=== PATIENT | female | born 1995 | race Hispanic/Latino ===

== ENCOUNTER 2019-09-05 12:27 | Emergency (ER) | payer SELFPAY ==
[2019-09-05] MEDS ORDERED: dexAMETHasone 10 MG/ML VIAL ONE (12:47)
[2019-09-05] MEDS ORDERED: MAGNE/ALUM HYDROXD 30 ML UCUP ONE (12:47)
[2019-09-05] MEDS ORDERED: AMOX/K CLAV 875 MG TAB ONE (12:48)
[2019-09-05] MEDS ORDERED: LIDOCAINE VISCOUS 2% SOLN 15 ML UDC ONE (12:48)
--- NOTE | 2019-09-05 13:00 | EDPHYS ---
Physician Documentation [facility] Name: Ayanna Ochoa Age: 23 yrs Sex: Female : 1995 Arrival Date: 09/05/2019 Time: 12:30 Bed 18 Private MD: ED Physician Salbador Bruno HPI: 09/05 13:06 This 23 yrs old Female presents to ER via Ambulatory with complaints of Sore kb Throat. 13:06 The patient presents with sore throat. The patient describes throat pain as constant. kb Onset: The symptoms/episode began/occurred 2 day(s) ago. Severity of symptoms: At their worst the symptoms were moderate, in the emergency department the symptoms are unchanged. Modifying factors: The symptoms are alleviated by nothing, the symptoms are aggravated by swallowing, Patient's oral intake status: good. Associated signs and symptoms: Pertinent positives: fever, Sore throat. The patient has not experienced similar symptoms in the past. The patient has not recently seen a physician. 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 - Social history:: Smoking status: Patient/guardian denies using tobacco. - Ebola Screening: : No symptoms or risks identified at this time. ROS: 13:04 Neck: Negative for injury, pain, and swelling, Cardiovascular: Negative for chest pain, kb palpitations, and edema, Respiratory: Negative for shortness of breath, cough, wheezing, and pleuritic chest pain, Abdomen/GI: Negative for abdominal pain, nausea, vomiting, diarrhea, and constipation, MS/Extremity: Negative for injury and deformity, Skin: Negative for injury, rash, and discoloration, Neuro: Negative for headache, weakness, numbness, tingling, and seizure. 13:04 Constitutional: Positive for fever. 13:04 ENT: Positive for sore throat. Exam: 13:04 Constitutional: This is a well developed, well nourished patient who is awake, alert, kb and in no acute distress. Head/Face: Normocephalic, atraumatic. Neck: Trachea midline, no thyromegaly or masses palpated, and no cervical lymphadenopathy. Supple, full range of motion without nuchal rigidity, or vertebral point tenderness. No Meningismus. Chest/axilla: Normal chest wall appearance and motion. Nontender with no deformity. No lesions are appreciated. Cardiovascular: Regular rate and rhythm with a normal S1 and S2. No gallops, murmurs, or rubs. Normal PMI, no JVD. No pulse deficits. Respiratory: Lungs have equal breath sounds bilaterally, clear to auscultation and percussion. No rales, rhonchi or wheezes noted. No increased work of breathing, no retractions or nasal flaring. Abdomen/GI: Soft, non-tender, with normal bowel sounds. No distension or tympany. No guarding or rebound. No evidence of tenderness throughout. Skin: Warm, dry with normal turgor. Normal color with no rashes, no lesions, and no evidence of cellulitis. MS/ Extremity: Pulses equal, no cyanosis. Neurovascular intact. Full, normal range of motion. Neuro: Awake and alert, GCS 15, oriented to person, place, time, and situation. Cranial nerves II-XII grossly intact. Motor strength 5/5 in all extremities. Sensory grossly intact. Cerebellar exam normal. Normal gait. 13:04 ENT: Posterior pharynx: Airway: normal, no evidence of obstruction, Tonsils: bilaterally enlarged, with erythema, Uvula: normal, midline, swelling, that is moderate, erythema, that is marked, exudate, is not appreciated. Vital Signs: 12:33 BP 141 / 83; Pulse 84; Resp 16; Temp 98.9; Pulse Ox 100% on R/A; Weight 136.08 kg; la1 MDM: 12:35 Patient medically screened. kb 12:58 Data reviewed: vital signs, nurses notes. Data interpreted: Pulse oximetry: on room air kb is 100 %. Interpretation: normal. Counseling: I had a detailed discussion with the patient and/or guardian regarding: the historical points, exam findings, and any diagnostic results supporting the discharge/admit diagnosis, lab results, the need for outpatient follow up, a family practitioner, to return to the emergency department if symptoms worsen or persist or if there are any questions or concerns that arise at home. 09/05 12:34 Order name: Strep; Complete Time: 12:58 la1 Administered Medications: 12:59 Drug: Augmentin 875 mg Route: PO; em 13:25 Follow up: Response: No adverse reaction em 12:59 Drug: Decadron 10 mg Route: PO; em 13:25 Follow up: Response: No adverse reaction em 12:59 Drug: GI Cocktail without - (Maalox Suspension 30 ml, Lidocaine Liquid 2 % 15 em ml) Route: PO; 13:25 Follow up: Response: No adverse reaction; Pain is decreased em Disposition: 09/05/19 12:59 Discharged to Home. Impression: Streptococcal pharyngitis. - Condition is Stable. - Discharge Instructions: Strep Throat, [id number]. - Prescriptions for Augmentin 875- 125 mg Oral Tablet - take 1 tablet by ORAL route every 12 hours for 10 days; 20 tablet. - Medication Reconciliation Form, Thank You Letter, Antibiotic Education, Prescription Opioid Use form. - Follow up: Emergency Department; When: As needed; Reason: Worsening of condition. Follow up: Private Physician; When: 2 - 3 days; Reason: Recheck today's complaints, Continuance of care, Re-evaluation by your physician. Addendum: 09/07/2019 06:59 Co-signature as Attending Physician, Salbador Bruno MD I agree with the assessment and c aguirre plan of care. Signatures: Dispatcher [employer] EDYissel Pierre, FIBERGLASSER-C FIBERGLASSER-Papab Salbador Bruno MD MD cha Munoz, Edgar, PATTERNMAKER PLASTICS PATTERNMAKER PLASTICS em Michael Golden RN RN la1 Corrections: (The following items were deleted from the chart) 09/05 13:29 12:59 09/05/2019 12:59 Discharged to Home. Impression: Streptococcal pharyngitis. em Condition is Stable. Forms are Medication Reconciliation Form, Thank You Letter, Antibiotic Education, Prescription Opioid Use. Follow up: Emergency Department; When: As needed; Reason: Worsening of condition. Follow up: Private Physician; When: 2 - 3 days; Reason: Recheck today's complaints, Continuance of care, Re-evaluation by your physician. kb
--- NOTE | 2019-09-05 13:00 | ER ---
Nurse's Notes [facility] Name: Ayanna Ochoa Age: 23 yrs Sex: Female : 1995 Arrival Date: 09/05/2019 Time: 12:30 Bed 18 Private MD: Diagnosis: Streptococcal pharyngitis Presentation: 09/05 12:32 Presenting complaint: Patient states: sore throat and VARGAS for the last 2 days. la1 Transition of care: patient was not received from another setting of care. Onset of symptoms was September 05, 2019. Risk Assessment: Do you want to hurt yourself or someone else? Patient reports no desire to harm self or others. Initial Sepsis Screen: Does the patient meet any 2 criteria? No. Patient's initial sepsis screen is negative. Does the patient have a suspected source of infection? No. Patient's initial sepsis screen is negative. Care prior to arrival: None. 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 - Social history:: Smoking status: Patient/guardian denies using tobacco. - Ebola Screening: : No symptoms or risks identified at this time. Screenin:01 Abuse screen: Denies threats or abuse. Nutritional screening: No deficits noted. em Tuberculosis screening: No symptoms or risk factors identified. Fall Risk None identified. Assessment: 13:00 General: Appears in no apparent distress. uncomfortable, Behavior is calm, cooperative, em Reports fever for 1-2 days. Pain: Complains of pain in soft palate, uvula, left aspect of posterior pharynx and right aspect of posterior pharynx Pain currently is 10 out of 10 on a pain scale. Neuro: Level of Consciousness is awake, alert, obeys commands, Oriented to person, place, time, situation, Appropriate for age. Cardiovascular: Capillary refill < 3 seconds Patient's skin is warm and dry. Respiratory: Airway is patent Respiratory effort is even, unlabored, Respiratory pattern is regular, symmetrical, Breath sounds are clear bilaterally. Denies cough. GI: Abdomen is obese. EENT: Nares are clear Oral mucosa is moist. Throat is reddened has enlarged tonsils bilaterally Reports difficulty swallowing since 2 days. Derm: Skin is intact, is healthy with good turgor, Skin is pink, warm \T\ dry. Musculoskeletal: Capillary refill < 3 seconds, Range of motion: intact in all extremities. 13:00 Reassessment: I agree with assessment completed by Danny Wise LVN . aa5 Vital Signs: 12:33 BP 141 / 83; Pulse 84; Resp 16; Temp 98.9; Pulse Ox 100% on R/A; Weight 136.08 kg; la1 ED Course: 12:30 Patient arrived in ED. as 12:33 Triage completed. la1 12:33 Arm band placed on left wrist. la1 12:34 Yissel Valadez FNP-C is [facility]. kb 12:34 Salbador Bruno MD is Attending Physician. kb 12:40 Danny Wise LVN is Primary Nurse. em 13:01 Patient has correct armband on for positive identification. Bed in low position. Call em light in reach. 13:01 No provider procedures requiring assistance completed. Patient did not have IV access em during this emergency room visit. Administered Medications: 12:59 Drug: Augmentin 875 mg Route: PO; em 13:25 Follow up: Response: No adverse reaction em 12:59 Drug: Decadron 10 mg Route: PO; em 13:25 Follow up: Response: No adverse reaction em 12:59 Drug: GI Cocktail without - (Maalox Suspension 30 ml, Lidocaine Liquid 2 % 15 em ml) Route: PO; 13:25 Follow up: Response: No adverse reaction; Pain is decreased em Outcome: 12:59 Discharge ordered by MD. kb 13:26 Discharged to home ambulatory. em 13:26 Condition: good 13:26 Discharge instructions given to patient, Instructed on discharge instructions, follow up and referral plans. medication usage, Demonstrated understanding of instructions, follow-up care, medications, Prescriptions given X 1. 13:29 Patient left the ED. em Signatures: Yissel Valadez FNP-C FNP-Danny Goncalves LVN QUILL FIXER em Ce White Audri RN RN aa5 Michael Golden RN RN la1
[2019-09-05 13:39] VITALS: BP 141/83; TEMP 98.9; O2SAT 100
== END 2019-09-05 13:29 | disposition home or self-care (01) ==
LOC: ER 12:27
DX: J02.0 Streptococcal pharyngitis (principal)
CPT/HCPCS: 87081; 99283; J1100

== ENCOUNTER 2019-09-30 18:08 | Emergency (ER) | payer SELFPAY ==
[2019-09-30] MEDS ORDERED: dexAMETHasone 4 MG TAB ONE (18:53)
[2019-09-30] MEDS ORDERED: IBUPROFEN 400 MG TAB ONE (18:53)
[2019-09-30] MEDS ORDERED: IBUPROFEN 200 MG TAB PO ONE (18:53)
--- NOTE | 2019-09-30 19:09 | RAD REPORT ---
EXAM DESCRIPTION: Skyler Single View09/30/2019 7:02 pm CLINICAL HISTORY: Chest pain COMPARISON: none FINDINGS: The lungs appear clear of acute infiltrate. The heart is normal size IMPRESSION: No acute abnormalities displayed
--- NOTE | 2019-09-30 19:20 | ER ---
Nurse's Notes [facility] Name: Ayanna Ochoa Age: 23 yrs Sex: Female : 1995 Arrival Date: 09/30/2019 Time: 18:11 Bed 7 Private MD: Diagnosis: Cough Presentation: 09/30 18:12 Presenting complaint: Patient states: i have been coughing really bad and running fever tw2 , my body aches, the back of my head hurts, my stomach started hurting since Friday. Transition of care: patient was not received from another setting of care. Onset of symptoms was September 30, 2019. Risk Assessment: Do you want to hurt yourself or someone else? Patient reports no desire to harm self or others. Initial Sepsis Screen: Does the patient meet any 2 criteria? No. Patient's initial sepsis screen is negative. Does the patient have a suspected source of infection? No. Patient's initial sepsis screen is negative. Care prior to arrival: None. 18:12 Method Of Arrival: Ambulatory tw2 18:12 Acuity: ANDREA 3 tw2 Triage Assessment: 18:14 General: Appears in no apparent distress. obese, Behavior is calm, cooperative, tw2 appropriate for age. Pain: Complains of pain in "body aches". 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 - Social history:: Smoking status: . - Ebola Screening: : Patient denies exposure to infectious person. Screenin:23 Abuse screen: Denies threats or abuse. Denies injuries from another. Nutritional jl7 screening: No deficits noted. Tuberculosis screening: No symptoms or risk factors identified. Fall Risk None identified. Assessment: 18:22 General: Appears in no apparent distress. uncomfortable, ill, obese, Behavior is calm, jl7 cooperative. Pain: Complains of pain in body aches Pain currently is 5 out of 10 on a pain scale. Quality of pain is described as aching, Pain began 5 days ago Is continuous. Neuro: Level of Consciousness is awake, alert, obeys commands, Oriented to person, place, time, situation. Cardiovascular: Patient's skin is warm and dry. Respiratory: Reports cough that is non-productive, Airway is patent Respiratory effort is even, unlabored, Respiratory pattern is regular, symmetrical. EENT: Throat is reddened has enlarged tonsils bilaterally. Derm: Skin is pink, warm \\T\\ dry. 19:07 General: Appears in no apparent distress. uncomfortable, Behavior is calm, cooperative, jd3 appropriate for age. Pain: Complains of pain in generalized Quality of pain is described as aching. Neuro: Level of Consciousness is awake, alert, obeys commands, Oriented to person, place, time, situation. Cardiovascular: Capillary refill < 3 seconds Patient's skin is warm and dry. Respiratory: Reports cough that is productive, persistent Airway is patent Respiratory effort is even, unlabored, Respiratory pattern is regular, symmetrical, Denies shortness of breath. GI: No signs and/or symptoms were reported involving the gastrointestinal system. : No signs and/or symptoms were reported regarding the genitourinary system. EENT: Reports pain in throat. Derm: Skin is intact, Skin is dry, Skin is normal, Skin temperature is warm. Musculoskeletal: Circulation, motion, and sensation intact. Range of motion: intact in all extremities. 19:41 Reassessment: Patient appears in no apparent distress at this time. Patient is alert, aa1 oriented x 3, equal unlabored respirations, skin warm/dry/pink. Discussed d/c \\T\\ f/u instructions with pt; denies questions or concerns at this time. Ambulatory to lobby with steady gait. Vital Signs: 18:13 BP 132 / 89; Pulse 94; Resp 17; Temp 98.7(TE); Pulse Ox 99% on R/A; Weight 136.08 kg tw2 (R); Height 5 ft. 5 in. (165.10 cm); Pain 5/10; 18:13 Body Mass Index 49.92 (136.08 kg, 165.10 cm) tw2 ED Course: 18:11 Patient arrived in ED. mr 18:13 Triage completed. tw2 18:14 Arm band placed on. tw2 18:15 Michael Golden FNP-C [facility]. la1 18:15 Demian Dickerson MD is Attending Physician. la1 18:16 Khoa Moreno, RN is Primary Nurse. jl7 18:23 Patient has correct armband on for positive identification. Bed in low position. Call jl7 light in reach. Side rails up X 1. Pulse ox on. NIBP on. 18:23 Flu and/or RSV swab sent to lab. jl7 19:00 Chest Single View XRAY In Process Unspecified. EDMS 19:41 No provider procedures requiring assistance completed. Patient did not have IV access aa1 during this emergency room visit. Administered Medications: 18:54 Drug: Decadron 10 mg Route: PO; jl7 18:54 Drug: Motrin 600 mg Route: PO; jl7 Outcome: 19:19 Discharge ordered by . la1 19:41 Discharged to home ambulatory. aa1 19:41 Condition: good 19:41 Discharge instructions given to patient, Instructed on discharge instructions, follow up and referral plans. medication usage, Demonstrated understanding of instructions, follow-up care, medications. 19:42 Patient left the ED. aa1 Signatures: Dispatcher [employer] EDCO Veronica Vogel, RN RN aa1 Knowles Solange Golden Michael, PAN PUSHER-C PAN PUSHER-Cla1 Kiki Dyson RN RN tw2 Khoa Moreno, RN RN jl7 Mateo Sesay RN RN jd3
--- NOTE | 2019-09-30 19:21 | EDPHYS ---
Physician Documentation [facility] Name: Ayanna Ochoa Age: 23 yrs Sex: Female : 1995 Arrival Date: 09/30/2019 Time: 18:11 Bed 7 Private MD: ED Physician Demian Dickerson HPI: 09/30 19:15 This 23 yrs old Female presents to ER via Ambulatory with complaints of Flu la1 Symptoms. 19:15 The patient or guardian reports cough, flu symptoms. Onset: The symptoms/episode la1 began/occurred 5 day(s) ago. Modifying factors: The symptoms are alleviated by nothing. the symptoms are aggravated by nothing. Associated signs and symptoms: Pertinent positives: chest pain, sore throat, this patient has no pertinent positive symptoms Pertinent negatives: chest pain, diarrhea, ear ache, nausea, rhinorrhea, sore throat, vomiting. Severity of symptoms: At their worst the symptoms were mild in the emergency department the symptoms are unchanged. pt recently had strep throat, completed abx, is having worsening cough and chills at home/. 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 - Social history:: Smoking status: . - Ebola Screening: : Patient denies exposure to infectious person. ROS: 19:17 Constitutional: + chills and subjective fever Eyes: Negative for injury, pain, redness, la1 and discharge, ENT: Negative for injury, pain, and discharge, Neck: Negative for injury, pain, and swelling, Cardiovascular: Negative for chest pain, palpitations, and edema, Respiratory: + for cough Abdomen/GI: Negative for abdominal pain, nausea, vomiting, diarrhea, and constipation, Back: Negative for injury and pain, MS/Extremity: Negative for injury and deformity, Neuro: Negative for headache, weakness, numbness, tingling, and seizure. Exam: 19:18 Constitutional: This is a well developed, well nourished patient who is awake, alert, la1 and in no acute distress. Head/Face: Normocephalic, atraumatic. Eyes: Pupils equal round and reactive to light, extra-ocular motions intact. Periorbital areas with no swelling, redness, or edema. 19:18 Neck: Trachea midline, no thyromegaly or masses palpated, and no cervical lymphadenopathy. Supple, full range of motion without nuchal rigidity, or vertebral point tenderness. No Meningismus. Chest/axilla: Normal chest wall appearance and motion. Nontender with no deformity. No lesions are appreciated. Cardiovascular: Regular rate and rhythm with a normal S1 and S2. No gallops, murmurs, or rubs. Normal PMI, no JVD. No pulse deficits. Respiratory: Lungs have equal breath sounds bilaterally, clear to auscultation and percussion. No rales, rhonchi or wheezes noted. No increased work of breathing, no retractions or nasal flaring. Abdomen/GI: Soft, non-tender, with normal bowel sounds. No distension or tympany. No guarding or rebound. No evidence of tenderness throughout. 19:18 ENT: Posterior pharynx: is normal, Tonsils: bilaterally enlarged, no enlargement, no erythema, no exudate, no ulcerations. Vital Signs: 18:13 BP 132 / 89; Pulse 94; Resp 17; Temp 98.7(TE); Pulse Ox 99% on R/A; Weight 136.08 kg tw2 (R); Height 5 ft. 5 in. (165.10 cm); Pain 5/10; 18:13 Body Mass Index 49.92 (136.08 kg, 165.10 cm) tw2 MDM: 18:15 Patient medically screened. la1 19:18 Data reviewed: vital signs, nurses notes, lab test result(s), radiologic studies, I la1 have discussed the patient's presentation/case with the attending Emergency Department Physician; and as a result, I will discharge patient. Data interpreted: Pulse oximetry: on room air is 99 %. Interpretation: normal. Counseling: I had a detailed discussion with the patient and/or guardian regarding: the historical points, exam findings, and any diagnostic results supporting the discharge/admit diagnosis, lab results, radiology results, the need for outpatient follow up, a family practitioner. Special discussion: I discussed with the patient/guardian that the patient's current presentation does not indicate dosing of antibiotics. They should follow-up with their primary care provider and return if the symptoms persist or progress. 09/30 18:17 Order name: Flu jl7 09/30 18:46 Order name: Chest Single View XRAY; Complete Time: 19:15 la1 Administered Medications: 18:54 Drug: Decadron 10 mg Route: PO; jl7 18:54 Drug: Motrin 600 mg Route: PO; jl7 Disposition: 10/01 06:41 Co-signature as Attending Physician, Demian Dickerson MD I agree with the assessment and kdr plan of care. Disposition: 09/30/19 19:19 Discharged to Home. Impression: Cough. - Condition is Stable. - Discharge Instructions: Acute Bronchitis, Adult, Cough, Adult. - Medication Reconciliation Form, Thank You Letter form. - Work release form (09/30/19 19:43). aa1 - Follow up: Private Physician; When: 2 - 3 days; Reason: Recheck today's complaints, Re-evaluation by your physician. - Problem is new. - Symptoms are unchanged. Signatures: Dispatcher [employer] Veronica Solorio, RN RN aa1 Demian Dickerson MD MD kdr Michael Golden, CARBONATION TESTER-C CARBONATION TESTER-Cla1 Kiki Dyson RN RN tw2 Khoa Moreno RN RN jl7 Corrections: (The following items were deleted from the chart) 09/30 19:42 19:19 09/30/2019 19:19 Discharged to Home. Impression: Cough. Condition is Stable. aa1 Forms are Medication Reconciliation Form, Thank You Letter, Antibiotic Education, Prescription Opioid Use. Follow up: Private Physician; When: 2 - 3 days; Reason: Recheck today's complaints, Re-evaluation by your physician. Problem is new. Symptoms are unchanged. la1
[2019-09-30 19:54] VITALS: BP 132/89; TEMP 98.7; O2SAT 99
== END 2019-09-30 19:42 | disposition home or self-care (01) ==
LOC: ER 18:08
DX: R05 Cough (principal)
CPT/HCPCS: 71045; 87804; 99284; J8540

== ENCOUNTER 2020-03-18 23:26 | Emergency (ER) | payer SELFPAY, OTHER ==
[2020-03-19 00:24] LABS: Urine Blood 2+ (NEG); Urine Glucose NEGATIVE (NEG); Urine Protein NEGATIVE (NEG); Urine Specific Gravity >1.030 (1.005-1.030); Urine pH 5.5 (5.0-7.0)
[2020-03-19] MEDS ORDERED: AMOX/K CLAV 875 MG TAB ONE (01:37)
[2020-03-19 01:42] VITALS: TEMP 97.7; O2SAT 100
[2020-03-19 01:43] VITALS: BP 125/60
--- NOTE | 2020-03-20 18:26 | ER ---
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 denies N/V/D, reports unsure of how high temp was due to not having a thermometer at home. 23:28 Coronavirus screen: Proceed with normal triage. Ebola Screen: Patient negative for sg fever greater than or equal to 101.5 degrees Fahrenheit, and additional compatible Ebola Virus Disease symptoms Patient denies exposure to infectious person. Patient denies travel to an Ebola-affected area in the 21 days before illness onset. No symptoms or risks identified at this time. 23:28 Method Of Arrival: Ambulatory sg 23:28 Acuity: ANDREA 5 sg 23:28 Initial Sepsis Screen: Does the patient meet any 2 criteria? No. Patient's initial sg sepsis screen is negative. Does the patient have a suspected source of infection? No. Patient's initial sepsis screen is negative. Risk Assessment: Do you want to hurt yourself or someone else? Patient reports no desire to harm self or others. Onset of symptoms was March 18, 2020. Care prior to arrival: None. Transition of care: patient was not received from another setting of care. Historical: - Allergies: 23:29 No Known Allergies; sg - PMHx: 23:51 Headaches; sg - PSHx: 23:29 ; sg - Immunization history:: Adult Immunizations up to date. - Social history:: Smoking status: Patient denies any tobacco usage or history of. Assessment: 23:30 General: Appears in no apparent distress. well groomed, well developed, well nourished, sg Behavior is calm, cooperative, appropriate for age. Neuro: Level of Consciousness is awake, alert, obeys commands, Oriented to person, place, time, Speech is normal, Facial symmetry appears normal. Cardiovascular: Patient's skin is warm and dry. Chest pain is denied. Respiratory: Airway is patent Respiratory effort is even, unlabored, Respiratory pattern is regular, symmetrical. GI: No signs and/or symptoms were reported involving the gastrointestinal system. : No signs and/or symptoms were reported regarding the genitourinary system. EENT: Nares are clear bilaterally Oral mucosa is moist. Throat is reddened has enlarged tonsils on right. Derm: No signs and/or symptoms reported regarding the dermatologic system. Musculoskeletal: Circulation, motion, and sensation intact. Range of motion: intact in all extremities. 03/19 01:20 Reassessment: pt request to be contacted with COVID 19 results at [phone]. sg Vital Signs: 03/18 23:28 BP 142 / 70; Pulse 78; Resp 18; Temp 97.7; Pulse Ox 100% ; sg 03/19 01:16 BP 125 / 60; Pulse 77; Resp 18; Temp 97.7; Pulse Ox 100% on R/A; Pain 0/10; sg ED Course: 03/18 23:28 Patient arrived in ED. ds1 23:28 Arm band placed on. sg 23:29 Triage completed. sg 23:30 Patient has correct armband on for positive identification. Pulse ox on. NIBP on. sg 23:56 Salbador Caicedo PA is PHCP. cp 23:56 Kodi Velez MD is Attending Physician. cp 03/19 00:20 Ian Jernigan, RN is Primary Nurse. sg 00:40 Flu and/or RSV swab sent to lab. Strep swab sent to lab. COVID 19 swab walked to lab as sg per policy. 01:20 No provider procedures requiring assistance completed. Patient did not have IV access sg during this emergency room visit. Administered Medications: 01:18 Drug: Augmentin 875 mg Route: PO; sg Outcome: 01:16 Discharge ordered by . cp 01:20 Discharged to home ambulatory, with friend. sg 01:20 Condition: good 01:20 Discharge instructions given to patient, teletype mechanic, Instructed on discharge instructions, follow up and referral plans. medication usage, safety practices, Demonstrated understanding of instructions, follow-up care, medications, Prescriptions given X 1. 01:23 Patient left the ED. sg Addendum: 03/24/2020 16:20 Addendum: Other attempted to contact pt regarding negative COVID-19 swab results. Left d m5 voice mail. Signatures: Neelam Carrera, RN RN dm5 Ian Jernigan RN RN sg Luma Adams ds1 Salbador Caicedo PA PA cp Corrections: (The following items were deleted from the chart) 03/18 23:50 23:28 Chief complaint: [facility] 23:52 23:28 Acuity: ANDREA 4 [facility] 03/19 00:18 03/18 23:28 Chief complaint: Patient states: I felt like I had a fever last night so I sg called my mutual fund manager and told them I was not coming in so she told me that I have to get checked out and get a work note before I can come back into work so that's why Im here. denies N/V/D, reports unsure of how high temp was due to not having a thermometer at [facility] Chief complaint: Patient states: I felt like I had a fever last night so I called my mutual fund manager and told them I was not coming in so she told me that I have to get checked out and get a work note before I can come back into work so that's why Im here. denies N/V/D, reports unsure of how high temp was due to not having a thermometer at [facility]
--- NOTE | 2020-03-20 18:26 | EDPHYS ---
Physician Documentation [facility] Name: Ayanna Ochoa Age: 24 yrs Sex: Female : 1995 Arrival Date: 03/18/2020 Time: 23:28 Bed 25 Private MD: ED Physician Kodi Velez HPI: 03/19 00:26 This 24 yrs old Female presents to ER via Ambulatory with complaints of Fever. cp 00:26 The patient reports fever, not measured (subjective). Onset: The symptoms/episode cp began/occurred yesterday. Associated signs and symptoms: Pertinent negatives: abdominal pain, chest pain, chills, cough, diarrhea, runny nose, sore throat, vomiting. Severity of symptoms: in the emergency department the symptoms have improved mildly. Patient reports taking oral tylenol yesterday afternoon and missing work yesterday after calling and telling them she felt like she had a fever. Patient reports she did not take temperature because she does not have a thermometer. Historical: - Allergies: 03/18 23:29 No Known Allergies; sg - PMHx: 23:51 Headaches; sg - PSHx: 23:29 ; sg - Immunization history:: Adult Immunizations up to date. - Social history:: Smoking status: Patient denies any tobacco usage or history of. ROS: 03/19 00:28 Eyes: Negative for injury, pain, redness, and discharge. cp Constitutional: Positive for subjective fever, Negative for body aches, chills, poor PO intake. ENT: Negative for drainage from ear(s), ear pain, sore throat, difficulty swallowing, difficulty handling secretions. Cardiovascular: Negative for chest pain. Respiratory: Negative for cough, shortness of breath, wheezing. Abdomen/GI: Negative for abdominal pain, nausea, vomiting, and diarrhea. Skin: Negative for rash. Neuro: Negative for altered mental status, dizziness, headache, weakness. All other systems are negative. Exam: 00:29 Head/Face: Normocephalic, atraumatic. cp 00:29 Constitutional: The patient appears in no acute distress, alert, awake, non-diaphoretic, non-toxic, well developed, well nourished, obese. 00:29 Eyes: Periorbital structures: appear normal, Conjunctiva: normal, no exudate, no injection, Lids and lashes: appear normal, bilaterally. 00:29 ENT: External ear(s): are unremarkable, Nose: is normal, Mouth: Lips: moist, Oral mucosa: moist, Posterior pharynx: Airway: no evidence of obstruction, patent, Tonsils: no enlargement, no exudate, erythema, that is mild, exudate, is not appreciated. 00:29 Neck: ROM/movement: is normal, is supple, no meningismus, Lymph nodes: no appreciated lymphadenopathy. 00:29 Chest/axilla: Inspection: normal. 00:29 Cardiovascular: Rate: normal, Rhythm: regular. 00:29 Respiratory: the patient does not display signs of respiratory distress, Respirations: normal, no use of accessory muscles, no retractions, labored breathing, is not present, Breath sounds: are clear throughout, no decreased breath sounds, no stridor, no wheezing. 00:29 Abdomen/GI: Exam negative for discomfort, distension, guarding, Inspection: abdomen appears normal. 00:29 Skin: no rash present. 00:29 Neuro: Orientation: to person, place \T\ time. Mentation: is normal. Vital Signs: 03/18 23:28 BP 142 / 70; Pulse 78; Resp 18; Temp 97.7; Pulse Ox 100% ; sg 03/19 01:16 BP 125 / 60; Pulse 77; Resp 18; Temp 97.7; Pulse Ox 100% on R/A; Pain 0/10; sg MDM: 03/18 23:56 Patient medically screened. 03/19 01:16 Data reviewed: vital signs, nurses notes, lab test result(s), and as a result, I will cp discharge patient. 01:16 Counseling: I had a detailed discussion with the patient and/or guardian regarding: the cp historical points, exam findings, and any diagnostic results supporting the discharge/admit diagnosis, lab results, to return to the emergency department if symptoms worsen or persist or if there are any questions or concerns that arise at home. 03/19 00:17 Order name: Urine Dipstick--Ancillary (enter results); Complete Time: 01:10 sg 03/19 00:17 Order name: Urine --Ancillary (enter results); Complete Time: 01:10 sg 03/19 00:24 Order name: COVID-19 cp 03/19 00:24 Order name: Flu; Complete Time: 01:10 cp 03/19 00:24 Order name: Strep; Complete Time: 01:10 cp 03/19 01:10 Interpretation: Abnormal: GP A STREP SC \T\nbsp; GROUP A STREP SCREEN-- \T\nbsp; \T\nbsp; cp POSITIVE. 03/19 00:25 Order name: CORONAVIRUS EDPA 03/18 23:56 Order name: Urine Dipstick-Ancillary (obtain specimen); Complete Time: 00:16 cp 03/18 23:56 Order name: Urine Test (obtain specimen); Complete Time: 00:16 cp 03/19 00:24 Order name: Document PUI#; Complete Time: 00:26 cp 03/19 00:24 Order name: Droplet/Contact Precautions; Complete Time: 00:26 cp 03/19 00:24 Order name: Labs collected and sent; Complete Time: 00:26 cp 03/19 00:24 Order name: Notify Health Dept [phone]/ ; Complete Time: 00:26 cp 03/19 00:24 Order name: O2 Per Protocol; Complete Time: 00:26 cp Administered Medications: 01:18 Drug: Augmentin 875 mg Route: PO; sg Disposition: 07:11 Co-signature as Attending Physician, Kodi Velez MD. [email or web address] Disposition: 03/19/20 01:16 Discharged to Home. Impression: Streptococcal pharyngitis. - Condition is Stable. - Discharge Instructions: Strep Throat. - Prescriptions for Amoxicillin 875 mg Oral Tablet - take 1 tablet by ORAL route every 12 hours for 10 days; 20 tablet. - Work release form, Medication Reconciliation Form, Thank You Letter, Antibiotic Education, Prescription Opioid Use form. - Follow up: Private Physician; When: 2 - 3 days; Reason: Worsening of condition. - Problem is new. - Symptoms have improved. Signatures: [facility] Ian Jernigan RN RN Salbador Alvarez PA PA cp Holmes, Maurice, MD MD [email or web address] Corrections: (The following items were deleted from the chart) 01:23 01:16 03/19/2020 01:16 Discharged to Home. Impression: Streptococcal pharyngitis. sg Condition is Stable. Forms are Work release form, Medication Reconciliation Form, Thank You Letter, Antibiotic Education, Prescription Opioid Use. Follow up: Private Physician; When: 2 - 3 days; Reason: Worsening of condition. Problem is new. Symptoms have improved. cp
== END 2020-03-19 01:23 | disposition home or self-care (01) ==
LOC: ER 23:26
DX: J02.0 Streptococcal pharyngitis (principal); Z20.828 Contact with and (suspected) exposure to other viral communicable diseases
CPT/HCPCS: 81003; 81025; 87081; 87804; 99284; U0002

== ENCOUNTER 2020-11-28 17:59 | Emergency (ER) | payer SELFPAY ==
--- NOTE | 2020-11-28 21:56 | ER ---
Nurse's Notes [facility] Name: Ayanna Ochoa Age: 24 yrs Sex: Female : 1995 Arrival Date: 11/28/2020 Time: 18:02 Bed 7 Private MD: Diagnosis: Presentation: 11/28 18:05 Chief complaint: Patient states: Vaginal bleeding getting worse over the last 3 weeks. ll1 No fever, but feels hot. + nausea. Coronavirus screen: Client denies travel out of the [place] in the last 14 days. At this time, the client does not indicate any symptoms associated with coronavirus-19. Ebola Screen: Patient denies travel to an Ebola-affected area in the 21 days before illness onset. Initial Sepsis Screen: Does the patient meet any 2 criteria? No. Patient's initial sepsis screen is negative. Does the patient have a suspected source of infection? Yes: Acute abdominal pain. Risk Assessment: Do you want to hurt yourself or someone else? Patient reports no desire to harm self or others. Onset of symptoms was November 05, 2020. 18:05 Method Of Arrival: Ambulatory ll1 18:05 Acuity: ANDREA 3 ll1 Historical: - Allergies: 18:07 No Known Allergies; ll1 - PMHx: 18:07 Headaches; ll1 - PSHx: 18:07 ; ll1 - Immunization history:: Flu vaccine is not up to date. - Social history:: Smoking status: Patient/guardian denies using tobacco, Stopped _ months ago 10. Vital Signs: 18:05 BP 138 / 64; Pulse 68; Resp 17; Temp 97.4; Pulse Ox 100% ; Weight 140.61 kg; Height 5 ll1 ft. 5 in. (165.10 cm); Pain 6/10; 18:05 Body Mass Index 51.59 (140.61 kg, 165.10 cm) ll1 ED Course: 18:02 Patient arrived in ED. as 18:07 Triage completed. ll1 18:08 Arm band placed on. ll1 Administered Medications: No medications were administered Outcome: 21:55 Patient left the ED. 1 Signatures: Ce White Lynsay RN RN [facility]
[2020-11-28 21:59] VITALS: BP 138/64; TEMP 97.4; O2SAT 100
== END 2020-11-28 21:55 | disposition left against medical advice (07) ==
LOC: ER 17:59
DX: Z53.21 Procedure and treatment not carried out due to patient leaving prior to being seen by health care provider (principal)
CPT/HCPCS: 99281

== ENCOUNTER 2022-12-15 08:41 | Emergency (ER) | payer SELFPAY ==
--- OUTSIDE RECORDS SUMMARY | 2022-12-15 08:45 | XMS REPORT | Continuity of Care Document ---
:1995 Author Organization [facility] t Address [address] [place] [address] Care Team Providers Name Role Phone Morrical Giuliano PANCHAL Attending Clinician Payers Payer Name Policy Type Policy Number Effective Date Expiration Date S ource Problems Condition Condition Condition Status Onset Resolution Last Treating Co mments Source Name Details Category Date Date Treatment Clinician Date Well woman Well woman Disease Active 2016-10 U nivers exam exam 2- ity of 00:00: [address] Morbid Morbid Disease Active 2016-10 [facility] obesity obesity 12-10 ity of 00:00: [address] Anemia of Anemia of Disease Active 2016-10 Uni vers mother in mother [place] 11[place]15 [place] condition Bran ch Rubella Rubella Disease Active Overview: Univ ers non-immune non-immune 02-17 Address i ty of status, status, 00:00: in [facility] antepartum antepartum 00 Me dical Branch Allergies, Adverse Reactions, Alerts Allergy Allergy Status Severity Reaction(s) Onset Inactive Treating Comm ents Source Name Type Date Date Clinician NO KNOWN Drug Active Univers ALLERGIE Class ity of S [facility] Social History Social Habit Start Date Stop Date Quantity Comments Source Sex Assigned At Universit y of [facility] Exposure to Not sure [place] of SARS-CoV-2 (event) [facility] Cigarettes smoked 2017-10-09 2017-10-09 Univers ity of current (pack per 00:00:00 00:00:00 ) - Reported Branch Tobacco use and 2017-10-09 2017-10-09 Never used Universit y of exposure 00:00:00 00:00:00 [facility] Alcohol intake 2017-10-09 2017-10-09 Current University of 00:00:00 00:00:00 non-drinker of [facility] alcohol Branch (finding) History of tobacco 2013-09-08 Cigarette Smoker University of use 00:00:00 [facility] Smoking Status Start Date Stop Date Source Former smoker 2017-10-09 00:00:00 2017-10-09 00:00:00 Universi ty of [facility] Medications Ordered Filled Start Stop Current Ordering Indication Dosage Frequency Signature Comments Components Source Medication Medication Date Date Medication? Clinician (SIG) Name Name shey 2016- Yes [id number] 1{tbl} Take 1 Univers ne 0.35 mg 2-21 tablet by ity of tablet 00:00: mouth [place] [address] daily. [facility] [place] Immunizations Ordered Filled Immunization Date Status Comments Sourc e Immunization Name Name HPV9 2017-10-09 Completed University of 00:00:00 [facility] MMR 2017-08-26 Completed University of 00:00:00 [facility] Influenza Virus 2017-08-26 Completed Universit y of Vaccine Quad IM 3+ 00:00:00 [facility] Branch HPV9 2017-08-25 Completed University of 00:00:00 [facility] TDAP 2017-07-08 Completed University of 00:00:00 [facility] MMR 2014-04-14 Completed University of 00:00:00 [facility] Varicella 2014-04-14 Completed University of (varivax)(chicken 00:00:00 [place] [facility] edical pox) Branch Influenza Virus 2013-11-04 Completed Universit y of Vaccine (3+ yrs) 00:00:00 [facility] dical Branch MMR 2013-02-22 Completed University of 00:00:00 [facility] Rubella 2013-02-12 Completed University of 00:00:00 [facility] Varicella 2013-02-12 Completed University of (varivax)(chicken 00:00:00 [facility] edical pox) Branch Rubella 2010-07-26 Completed University of 00:00:00 [facility] Varicella 2010-07-26 Completed University of (varivax)(chicken 00:00:00 [facility] edical pox) Branch MMR 2010-02-23 Completed University of 00:00:00 [facility] Influenza Virus 2009-10-24 Completed Universit y of Vaccine - Whole 00:00:00 [facility] ical Branch Td 2008-02-13 Completed University of 00:00:00 [facility] Vital Signs Vital Name Observation Time Observation Value Comments Source Systolic blood 2020-11-29 08:59:00 120 mm[Hg] Univer sity of pressure [facility] Diastolic blood 2020-11-29 08:59:00 70 mm[Hg] Unive rsity of [facility] Heart rate 2020-11-29 08:59:00 82 /min [facility] Respiratory rate 2020-11-29 08:59:00 19 /min [facility] Oxygen saturation in 2020-11-29 08:59:00 99 /min [facility] Arterial blood by [facility] Pulse oximetry [place] Body temperature 2020-11-29 05:48:00 36.78 Ruthie [facility] Body weight 2020-11-29 05:48:00 145.1 kg [facility] BMI 2020-11-29 05:48:00 54.91 kg/m2 [facility] Procedures Procedure Date / Time Performed Performing Clinician Emily e URINALYSIS 2020-11-29 08:54:00 Giuliano Hall [facility] TEST, SERUM 2020-11-29 06:19:00 Cynthia Hall [facility] BASIC METABOLIC PANEL 2020-11-29 06:19:00 Cynthia Hall [facility] (NA, K, CL, CO2, [facility] GLUCOSE, BUN, CREATININE, CA) CBC WITH DIFF 2020-11-29 06:19:00 [facility] Start End Encounter Admission Attending Care Care Encounter Source Date/Time Date/Time Type Type Clinicians Facility Department ID 2021-08-18 Emergency [facility] [id number] Univers 22:41:10 ity of [facility] 2020-11-28 2020-11-29 Emergency Morrical, TRAUMA [id number] Univers 23:56:00 03:41:00 Giuliano Read [place] [id number] [id number] [id number] [facility] 014 Branch Results Test Description Test Time Test Comments Results Result Comments Source URINALYSIS 2020-11-29 09:18:00 Test Item Value Reference Range Interpretation Comme nts APPEARANCE (test code = Hazy Clear A 8665651513) COLOR (test code = 9505986914) Yellow Yellow PH (test code = 7415692497) 4.8-8.0 SP GRAVITY (test code = 1.003-1.030 8326646281) GLU U QUAL (test code = Normal Normal 4768735730) BLOOD (test code = 3686237297) 3+ Negative A KETONES (test code = 1617120374) Negative Negative PROTEIN (test code = 2887-8) Negative Negative UROBILIN (test code = 4.0 mg/dL Normal A 2032525621) BILIRUBIN (test code = Negative Negative 8701678362) NITRITE (test code = 7134376170) Negative Negative LEUK GONZALO (test code = 25/uL Negative A 3855703210) RBC/HPF (test code = 4774387411) >182 See_Comment H [Automated message] The system which ge nerated this result transmit soco reference range: 0 - 3 HP F. The reference range was not used to interpret th is result as normal/abnormal . WBC/HPF (test code = 5378139395) See_Comment H [Automated message] The system which ge nerated this result transmit soco reference range: 0 - 5 HP F. The reference range was not used to interpret th is result as normal/abnormal . BACTERIA (test code = Negative Negative 6778176338) MUCOUS (test code = 7708689801) Slight Negative LPF A SQ EPITH (test code = See_Comment [Auto mated message] The 3812819290) system which [employer] nerated this result transmit soco reference range: <=2 HPF. The reference range was not used to interpret th is result as normal/abnormal . Lab Interpretation (test code = Abnormal 57587-6) [facility], [id number] 07:04:00 Test Item Value Reference Range Interpretation Comments PREG SERUM (test code Negative = 6941036295) CARROLL (test code = CARROLL) Less than 10 IU/L. ?If low titer or ectopic is suspected, resubmit specimen in 48-72 hours. [facility] Metabolic Panel (NA, K, CL, CO2, GLUCOSE, BUN, CREATININE, CA)2020-11-29 06:52:00 Test Item Value Reference Range Interpretation Comments NA (test code = 140 mmol/L 135-145 3601304266) K (test code = 3.9 mmol/L 3.5-5 1293567376) CL (test code = 104 mmol/L 98-108 8123106381) CO2 TOTAL (test code = 29 mmol/L 23-31 7042563828) AGAP (test code = 2-16 9746022846) BUN (test code = 7 mg/dL 7-23 1738108159) GLUCOSE (test code = 104 mg/dL 70-110 2401846040) CREATININE (test code 0.60 mg/dL 0.5-1.04 = 9951226448) CALCIUM (test code = 9.2 mg/dL 8.6-10.6 6803319507) eGFR Calculation mL/min/1.73m2 (Non-) (test code = 2437915160) eGFR Calculation mL/min/1.73m2 () (test code = 2663815167) CARROLL (test code = CARROLL) Association of Glomerular Filtration Rate (GFR) and Staging of Kidney Disease* + -+ + ---+| GFR (mL/min/1.73 m2) ?| With Kidney Damage ?| ?Without Kidney Damage+ -------+ ------+ ---------+| ?>90 ?| ?Stage one ?| ? Normal ?+ --+ -+ ----+| ?60-89 ?| ?Stage two ?| ? Decreased GFR ? + -+ + ---+| ?30-59 ?| ?Stage three ?| ? Stage three ? + -+ + ---+| ?15-29 ?| ?Stage four ? | ? Stage four ?+ --+ -+ ----+| ?<15 (or dialysis) ? ?| ?Stage five ? | ? Stage five ?+ --+ -+ ----+ *Each stage assumes the associated GFR level has been in effect for at least three months. ?Stages 1 to 5, with or without kidney disease, indicate chronic kidney disease. Notes: Determination of stages one and two (with eGFR >59mL/min/1.73 m2) requires estimation of kidney damage for at least three months as defined by structural or functional abnormalities of the kidney, manifested by either:Pathological abnormalities or Markers of kidney damage (including abnormalities in the composition of the blood or urine or abnormalities in imaging tests). [facility] with [id number] 06:46:00 Test Item Value Reference Range Interpretation Comments WBC (test code = See_Comment [Automated 6690-2) message] The sy stem which generated this result transmitted reference range : 4.30 - 11.10 10*3/?L. The reference range was not used to interpret this result as normal/abnormal . RBC (test code = See_Comment [Automated 789-8) message] The sy stem which generated this result transmitted reference range : 3.93 - 5.25 10*6/?L. The reference range was not used to interpret this result as normal/abnormal . HGB (test code = 13.0 g/dL 11.6-15 718-7) HCT (test code = 39.5 % 35.7-45.2 4544-3) MCV (test code = 95.6 fL 80.6-95.5 H 787-2) MCH (test code = 31.5 pg 25.9-32.8 785-6) MCHC (test code = 32.9 g/dL 31.6-35.1 786-4) RDW-SD (test code = 45.0 fL 39-49.9 34128-2) RDW-CV (test code = 12.7 % 12-15.5 788-0) PLT (test code = See_Comment [Automated 777-3) message] The sy stem which generated this result transmitted reference range : 166 - 358 10*3/ ?L. The reference r edvin was not used to interpret this result as normal/abnormal . MPV (test code = 10.6 fL 9.5-12.9 08778-0) NRBC/100 WBC (test See_Comment [Automat ed code = 9150837281) message] The system which generated this result transmitted reference range : 0.0 - 10.0 /100 WBCs. The refer ence range was not u sed to interpret th is result as normal/abnormal . NRBC x10^3 (test code <0.01 See_Comment [Auto mated = 7426771404) message] The s ystem which generated this result transmitted reference range : 10*3/?L. The reference range was not used to interpret this result as normal/abnormal . GRAN MAT (NEUT) % 59.1 % (test code = 770-8) IMM GRAN % (test code 0.30 % = 4020569070) LYMPH % (test code = 33.0 % 736-9) MONO % (test code = 6.2 % 5905-5) EOS % (test code = 1.1 % 713-8) BASO % (test code = 0.3 % 706-2) GRAN MAT x10^3(ANC) 5.16 10*3/uL 1.88-7.09 (test code = 6586640450) IMM GRAN x10^3 (test 0.03 10*3/uL 0-0.06 code = 8815705299) LYMPH x10^3 (test code 2.89 10*3/uL 1.32-3.29 = 731-0) MONO x10^3 (test code 0.54 10*3/uL 0.33-0.92 = 742-7) EOS x10^3 (test code = 0.10 10*3/uL 0.03-0.39 711-2) BASO x10^3 (test code 0.03 10*3/uL 0.01-0.07 = 704-7) Lab Interpretation Abnormal (test code = 08883-8) [facility]"
[2022-12-15] MEDS ORDERED: IBUPROFEN 400 MG TAB ONE (09:03)
--- NOTE | 2022-12-15 10:16 | RAD REPORT ---
EXAM DESCRIPTION: RAD - Ankle Right 3 View - 12/15/2022 9:11 am CLINICAL HISTORY: Pain COMPARISON: None. FINDINGS: Three views of the right ankle. Metallic ornamental bodies overlapping the area above the ankle limit evaluation. No fracture, disloc ation or periosteal reaction. No joint effusion seen. Small calcaneal spur. Enthesopathy at the Achil les tendon attachment. No joint space narrowing. No soft tissue abnormality. IMPRESSION: No acute osseus abnormality. Chronic findings as above.
--- NOTE | 2022-12-15 10:17 | ER ---
Nurse's Notes [facility] Name: Ayanna Ochoa Age: 27 yrs Sex: Female : 1995 Arrival Date: 12/15/2022 Time: 08:45 Bed 5 Private MD: Diagnosis: Sprain of ankle Presentation: 12/15 08:46 Chief complaint: Patient states: "I was out dancing last night and the ground was aa5 uneven and I hurt my ankle". Pt c/o right ankle pain. 08:46 Acuity: ANDREA 4 aa5 08:46 Coronavirus screen: At this time, the client does not indicate any symptoms associated aa5 with coronavirus-19. 08:46 Method Of Arrival: Ambulatory aa5 08:49 Ebola Screen: No symptoms or risks identified at this time. Initial Sepsis Screen: Does ph the patient meet any 2 criteria? No. Patient's initial sepsis screen is negative. Does the patient have a suspected source of infection? No. Patient's initial sepsis screen is negative. Risk Assessment: Do you want to hurt yourself or someone else? Patient reports no desire to harm self or others. Onset of symptoms was December 15, 2022. Historical: - Allergies: 08:48 No Known Allergies; ph - PMHx: 08:48 Headaches; ph - Immunization history:: Adult Immunizations unknown. - Social history:: Smoking status: unknown. Screenin:48 [facility] ED Fall Risk Assessment (Adult) History of falling in the last 3 months, ph including since admission Yes- single mechanical fall (1 pt) Confusion or Disorientation No (0 pts) Intoxicated or Sedated No (0 pts) Impaired Gait No (0 pts) Mobility Assist Device Used No (0 pt) Altered Elimination No (0 pt) Score/Fall Risk Level 0 - 2 = Low Risk Oriented to surroundings, Maintained a safe environment, Hourly rounding (assess needs \\T\\ fall precautionary measures) done. Abuse screen: Denies threats or abuse. Denies injuries from another. Nutritional screening: No deficits noted. Tuberculosis screening: No symptoms or risk factors identified. Assessment: 08:50 General: Appears in no apparent distress. uncomfortable, Behavior is calm, cooperative, jl7 appropriate for age. Pain: Complains of pain in right ankle Pain currently is 7 out of 10 on a pain scale. Cardiovascular: Patient's skin is warm and dry. Respiratory: Airway is patent Respiratory effort is even, unlabored, Respiratory pattern is regular, symmetrical. Derm: Skin is pink, warm \\T\\ dry. Musculoskeletal: Range of motion: limited in right ankle Swelling present in right ankle. 10:00 Reassessment: Patient appears in no apparent distress at this time. No changes from jl7 previously documented assessment. Patient and/or family updated on plan of care and expected duration. Pain level reassessed. Patient is alert, oriented x 3, equal unlabored respirations, skin warm/dry/pink. Vital Signs: 08:52 BP 113 / 76; Pulse 103; Resp 17; Temp 98.0; Pulse Ox 99% ; rs5 10:02 BP 109 / 63; Pulse 89; Resp 18; Pulse Ox 98% ; ph ED Course: 08:45 Patient arrived in ED. rg4 08:46 Yissel Valadez FNP-C is [facility]. kb 08:46 Alan Ramirez MD is Attending Physician. kb 08:48 Khoa Moreno RN is Primary Nurse. jl7 08:49 Patient has correct armband on for positive identification. Bed in low position. Call ph light in reach. Pulse ox on. NIBP on. Door closed. Noise minimized. 08:49 Arm band placed on Patient placed in an exam room. ph 08:59 Triage completed. aa5 09:12 Ankle Right 3 View XRAY In Process Unspecified. EDMS 10:00 No provider procedures requiring assistance completed. Patient did not have IV access jl7 during this emergency room visit. 10:28 Domo wrap to right ankle. jl7 Administered Medications: 09:03 Drug: Ibuprofen 800 mg Route: PO; jl7 10:27 Follow up: Response: No adverse reaction jl7 Medication: 10:00 VIS not applicable for this client. jl7 Outcome: 10:17 Discharge ordered by . kb 10:28 Discharged to home ambulatory. jl7 10:28 Condition: stable 10:28 Discharge instructions given to patient, Instructed on discharge instructions, follow up and referral plans. medication usage, Demonstrated understanding of instructions, follow-up care, medications, Prescriptions given X 1. 10:28 Patient left the ED. jl7 Signatures: Dispatcher [employer] EDND Yissel Valadez FNP-C FNP-Ckb Calderon, Audri RN RN aa5 Marylu Walters, RN RN ph [place], Sarah rg4 Khoa Moreno RN RN jl7 Darnell Turner rs5
--- NOTE | 2022-12-15 10:17 | EDPHYS ---
Physician Documentation [facility] Name: Ayanna Ochoa Age: 27 yrs Sex: Female : 1995 Arrival Date: 12/15/2022 Time: 08:45 Bed 5 Private MD: ED Physician Alan Ramirez HPI: 12/15 09:36 This 27 yrs old Female presents to ER via Ambulatory with complaints of Ankle kb Injury. 09:36 The patient presents with an injury, pain, swelling, tenderness. The complaints affect kb the right ankle. Onset: The symptoms/episode began/occurred last night. Context: The problem was sustained outdoors, resulted from twist, The patient can fully bear weight on the affected extremity. the patient is able to ambulate. Associated signs and symptoms: Pertinent positives: swelling. Modifying factors: The symptoms are alleviated by nothing, the symptoms are aggravated by weight bearing, movement. Severity of symptoms: At their worst the symptoms were moderate, in the emergency department the symptoms are unchanged. The patient has not experienced similar symptoms in the past. The patient has not recently seen a physician. Historical: - Allergies: 08:48 No Known Allergies; ph - PMHx: 08:48 Headaches; ph - Immunization history:: Adult Immunizations unknown. - Social history:: Smoking status: unknown. ROS: 09:35 Constitutional: Negative for fever, chills, and weight loss. kb 09:35 MS/extremity: Positive for pain, swelling, tenderness, of the right ankle. 09:35 All other systems are negative. Exam: 09:35 Constitutional: This is a well developed, well nourished patient who is awake, alert, kb and in no acute distress. Head/Face: Normocephalic, atraumatic. ENT: Moist Mucous membranes Cardiovascular: Regular rate and rhythm with a normal S1 and S2. No gallops, murmurs, or rubs. No pulse deficits. Respiratory: Respirations even and unlabored. No increased work of breathing. Talking in full sentences Skin: Warm, dry with normal turgor. Normal color. Neuro: Awake and alert, GCS 15, oriented to person, place, time, and situation. Moves all extremities. Normal gait. Psych: Awake, alert, with orientation to person, place and time. Behavior, mood, and affect are within normal limits. 09:35 Musculoskeletal/extremity: Extremities: grossly normal except: noted in the right ankle: pain, swelling, tenderness, ROM: limited active range of motion due to pain, Circulation is intact in all extremities. Sensation intact. Weight bearing: able to fully bear weight. Vital Signs: 08:52 BP 113 / 76; Pulse 103; Resp 17; Temp 98.0; Pulse Ox 99% ; rs5 10:02 BP 109 / 63; Pulse 89; Resp 18; Pulse Ox 98% ; ph MDM: 08:46 Patient medically screened. kb 09:37 Differential diagnosis: fracture, sprain. Data reviewed: vital signs, nurses notes. kb Independent interpretation of the following test(s) in the Emergency Department X-Ray: My interpretation is X-ray right ankle read by me, no fracture.. Counseling: I had a detailed discussion with the patient and/or guardian regarding: the historical points, exam findings, and any diagnostic results supporting the discharge/admit diagnosis, radiology results, the need for outpatient follow up, a orthopedic surgeon, to return to the emergency department if symptoms worsen or persist or if there are any questions or concerns that arise at home. 09:53 ED course: Patient is a 27-year-old female who presents with right ankle pain and kb swelling that resulted from twisting it while dancing last night. On exam patient has swelling and tenderness to right ankle more so on the lateral aspect. X-ray of the right ankle ordered and reviewed by me. No apparent fracture. Patient educated to follow-up with orthopedics for continued pain. Educated on RICE. Given return precautions. Verbal understanding received.. 12/15 08:49 Order name: Ankle Right 3 View XRAY; Complete Time: 10:16 kb 12/15 08:53 Order name: Ice pack; Complete Time: 08:55 kb 12/15 10:18 Order name: Domo Wrap; Complete Time: 10:25 kb Administered Medications: 09:03 Drug: Ibuprofen 800 mg Route: PO; jl7 10:27 Follow up: Response: No adverse reaction jl7 Disposition: 11:53 Co-signature as Attending Physician, Alan Ramirez MD I reviewed the patient's care rn provided by the Advanced Practice Provider and agree with the diagnosis and treatment plan. Disposition Summary: 12/15/22 10:17 Discharge Ordered Location: Home kb Condition: Stable kb Diagnosis - Sprain of ankle kb Followup: kb - With: Emergency Department - When: As needed - Reason: Worsening of condition Followup: kb - With: Private Physician - When: 2 - 3 days - Reason: Recheck today's complaints, Continuance of care, Re-evaluation by your physician Discharge Instructions: - Discharge Summary Sheet kb - Ankle Sprain, [id number] kb Forms: - Medication Reconciliation Form kb - Thank You Letter kb - Antibiotic Education kb - Prescription Opioid Use kb - Work release form jl7 Prescriptions: - Ibuprofen 800 mg Oral Tablet - take 1 tablet by ORAL route every 8 hours As needed take with food; 30 tablet; kb Refills: 0, Product Selection Permitted Signatures: Dispatcher [employer] EDMS Yissel Valadez, AUTOS DISASSEMBLERShirleyC AUTOS DISASSEMBLER-Alan Link MD MD rn Hall, Patricia RN RN Khoa Abdi RN RN jl7
[2022-12-15 11:02] VITALS: TEMP 98
[2022-12-15 11:03] VITALS: BP 109/63; O2SAT 98
== END 2022-12-15 10:28 | disposition home or self-care (01) ==
LOC: ER 08:41
DX: S93.401A Sprain of unspecified ligament of right ankle, initial encounter (principal)
CPT/HCPCS: 99284

== ENCOUNTER 2023-04-16 22:56 | Emergency (ER) | payer SELFPAY ==
--- OUTSIDE RECORDS SUMMARY | 2023-04-16 23:00 | XMS REPORT | Continuity of Care Document ---
:1995 Author Organization [facility] t Address [address] [facility] [address] [facility]. [address] [place] [address] Care Team Providers Name Role Phone Morrical Giuliano PANCHAL Attending Clinician Payers Payer Name Policy Type Policy Number Effective Date Expiration Date S ource Problems Condition Condition Condition Status Onset Resolution Last Treating Co mments Source Name Details Category Date Date Treatment Clinician Date Well woman Well woman Disease Active 2016-10 U nivers exam exam 2- ity of 00:00: [address] Morbid Morbid Disease Active 2016-10 Univers obesity obesity 12-10 ity of 00:00: [address] Anemia of Anemia of Disease Active 2016-10 Uni vers mother in mother in 11-15 [place] condition condition Bran ch Rubella Rubella Disease Active Overview: Univ ers non-immune non-immune 02-17 Address i ty of status, status, 00:00: in [facility] antepartum antepartum 00 Me dical Branch Allergies, Adverse Reactions, Alerts Allergy Allergy Status Severity Reaction(s) Onset Inactive Treating Comm ents Source Name Type Date Date Clinician NO KNOWN Drug Active Univers ALLERGIE Class ity of S [facility] Social History Social Habit Start Date Stop Date Quantity Comments Source Sex Assigned At Universit y of [facility] Exposure to Not sure Carmi of SARS-CoV-2 (event) [facility] Cigarettes smoked 2017-10-09 2017-10-09 Univers ity of current (pack per 00:00:00 00:00:00 ) - Reported Branch Tobacco use and 2017-10-09 2017-10-09 Never used Universit y of exposure 00:00:00 00:00:00 [facility] Alcohol intake 2017-10-09 2017-10-09 Current University of 00:00:00 00:00:00 non-drinker of [facility] alcohol Branch (finding) History of tobacco 2013-09-08 Cigarette Smoker University of use 00:00:00 [facility] Smoking Status Start Date Stop Date Source Former smoker 2017-10-09 00:00:00 2017-10-09 00:00:00 Universi ty of [facility] Medications Ordered Filled Start Stop Current Ordering Indication Dosage Frequency Signature Comments Components Source Medication Medication Date Date Medication? Clinician (SIG) Name Name shey 2016- Yes [id number] 1{tbl} Take 1 Univers ne 0.35 mg 2-21 tablet by ity of tablet 00:00: mouth [place] [id number] daily. [facility] [place] Immunizations Ordered Filled Immunization Date Status Comments Sourc e Immunization Name Name HPV9 2017-10-09 Completed University of 00:00:00 [facility] MMR 2017-08-26 Completed University of 00:00:00 [facility] Influenza Virus 2017-08-26 Completed Universit y of Vaccine Quad IM 3+ 00:00:00 [facility] Branch HPV9 2017-08-25 Completed University of 00:00:00 [facility] TDAP 2017-07-08 Completed University of 00:00:00 [facility] MMR 2014-04-14 Completed University of 00:00:00 [facility] Varicella 2014-04-14 Completed University of (varivax)(chicken 00:00:00 [place] [facility] pox) Branch Influenza Virus 2013-11-04 Completed Universit y of Vaccine (3+ yrs) 00:00:00 [facility] dical Branch MMR 2013-02-22 Completed University of 00:00:00 [facility] Rubella 2013-02-12 Completed University of 00:00:00 [facility] Varicella 2013-02-12 Completed University of (varivax)(chicken 00:00:00 [facility] edical pox) Branch Rubella 2010-07-26 Completed University of 00:00:00 [facility] Varicella 2010-07-26 Completed University of (varivax)(chicken 00:00:00 [facility] edical pox) Branch MMR 2010-02-23 Completed University of 00:00:00 [facility] Influenza Virus 2009-10-24 Completed Universit y of Vaccine - Whole 00:00:00 [facility] ical Branch Td 2008-02-13 Completed University of 00:00:00 [facility] Vital Signs Vital Name Observation Time Observation Value Comments Source Systolic blood 2020-11-29 08:59:00 120 mm[Hg] Univer sity of pressure [facility] Diastolic blood 2020-11-29 08:59:00 70 mm[Hg] Unive rsity of [facility] Heart rate 2020-11-29 08:59:00 82 /min [facility] Respiratory rate 2020-11-29 08:59:00 19 /min [facility] Oxygen saturation in 2020-11-29 08:59:00 99 /min [facility] Arterial blood by [facility] Pulse oximetry [place] Body temperature 2020-11-29 05:48:00 36.78 Ruthie [facility] Body weight 2020-11-29 05:48:00 145.1 kg [facility] BMI 2020-11-29 05:48:00 54.91 kg/m2 [facility] Procedures Procedure Date / Time Performed Performing Clinician Emily e URINALYSIS 2020-11-29 08:54:00 Giuliano Hall [facility] TEST, SERUM 2020-11-29 06:19:00 Cynthia Hall [facility] BASIC METABOLIC PANEL 2020-11-29 06:19:00 Cynthia Hall [facility] (NA, K, CL, CO2, [facility] GLUCOSE, BUN, CREATININE, CA) CBC WITH DIFF 2020-11-29 06:19[facility] End Encounter Admission Attending Care Care Encounter Source Date/Time Date/Time Type Type Clinicians Facility Department ID 2021-08-18 Emergency [facility] [id number] Univers 22:41:10 ity of [facility] 2020-11-28 2020-11-29 Emergency Morrical, TRAUMA [id number] Univers 23:56:00 03:41:00 Giuliano Read PLUSH [id number] [id number] [facility] 014 Branch Results Test Description Test Time Test Comments Results Result Comments Source URINALYSIS 2020-11-29 09:18:00 Test Item Value Reference Range Interpretation Comme nts APPEARANCE (test code = Hazy Clear A 5919368440) COLOR (test code = 6767743614) Yellow Yellow PH (test code = 6634225410) 4.8-8.0 SP GRAVITY (test code = 1.003-1.030 1424140288) GLU U QUAL (test code = Normal Normal 6369436042) BLOOD (test code = 2596301552) 3+ Negative A KETONES (test code = 3736630406) Negative Negative PROTEIN (test code = 2887-8) Negative Negative UROBILIN (test code = 4.0 mg/dL Normal A 9408489058) BILIRUBIN (test code = Negative Negative 2793053548) NITRITE (test code = 2575624666) Negative Negative LEUK GONZALO (test code = 25/uL Negative A 9006517428) RBC/HPF (test code = 5325572494) >182 See_Comment H [Automated message] The system which ge nerated this result transmit soco reference range: 0 - 3 HP F. The reference range was not used to interpret th is result as normal/abnormal . WBC/HPF (test code = 9763692286) See_Comment H [Automated message] The system which ge nerated this result transmit soco reference range: 0 - 5 HP F. The reference range was not used to interpret th is result as normal/abnormal . BACTERIA (test code = Negative Negative 9004903508) MUCOUS (test code = 1107553565) Slight Negative LPF A SQ EPITH (test code = See_Comment [Auto mated message] The 0939444744) system which [employer] nerated this result transmit soco reference range: <=2 HPF. The reference range was not used to interpret th is result as normal/abnormal . Lab Interpretation (test code = Abnormal 37194-7) [facility] [id number] 07:04:00 Test Item Value Reference Range Interpretation Comments PREG SERUM (test code Negative = 5291276878) CARROLL (test code = CARROLL) Less than 10 IU/L. ?If low titer or ectopic is suspected, resubmit specimen in 48-72 hours. [facility] Metabolic Panel (NA, K, CL, CO2, GLUCOSE, BUN, CREATININE, CA)2020-11-29 06:52:00 Test Item Value Reference Range Interpretation Comments NA (test code = 140 mmol/L 135-145 3275962853) K (test code = 3.9 mmol/L 3.5-5 6368362774) CL (test code = 104 mmol/L 98-108 4711677221) CO2 TOTAL (test code = 29 mmol/L 23-31 6535226621) AGAP (test code = 2-16 2870389155) BUN (test code = 7 mg/dL 7-23 9040307336) GLUCOSE (test code = 104 mg/dL 70-110 2707432609) CREATININE (test code 0.60 mg/dL 0.5-1.04 = 9733684700) CALCIUM (test code = 9.2 mg/dL 8.6-10.6 5828528268) eGFR Calculation mL/min/1.73m2 (Non-) (test code = 1716567022) eGFR Calculation mL/min/1.73m2 () (test code = 6204667522) CARROLL (test code = CARROLL) Association of [...] or urine or abnormalities in imaging tests). [facility] with [id number] 06:46:00 Test Item Value Reference Range Interpretation [...] RDW-SD (test code = 45.0 fL 39-49.9 45882-2) RDW-CV (test code = 12.7 % 12-15.5 788-0) PLT (test code = See_Comment [Automated 777-3) message] The sy stem which generated this result transmitted reference range : 166 - 358 10*3/ ?L. The reference r edvin was not used to interpret this result as normal/abnormal . MPV (test code = 10.6 fL 9.5-12.9 45733-3) NRBC/100 WBC (test See_Comment [Automat ed code = 4705284747) message] The system which generated this result transmitted reference range : 0.0 - 10.0 /100 WBCs. The refer ence range was not u sed to interpret th is result as normal/abnormal . NRBC x10^3 (test code <0.01 See_Comment [Auto mated = 4793400259) message] The s ystem which generated this result transmitted reference range : 10*3/?L. The reference range was not used to interpret this result as normal/abnormal . GRAN MAT (NEUT) % 59.1 % (test code = 770-8) IMM GRAN % (test code 0.30 % = 8136255139) LYMPH % (test code = 33.0 % 736-9) MONO % (test code = 6.2 % 5905-5) EOS % (test code = 1.1 % 713-8) BASO % (test code = 0.3 % 706-2) GRAN MAT x10^3(ANC) 5.16 10*3/uL 1.88-7.09 (test code = 3076091188) IMM GRAN x10^3 (test 0.03 10*3/uL 0-0.06 code = 8955001348) LYMPH x10^3 (test code 2.89 10*3/uL 1.32-3.29 = 731-0) MONO x10^3 (test code 0.54 10*3/uL 0.33-0.92 = 742-7) EOS x10^3 (test code = 0.10 10*3/uL 0.03-0.39 711-2) BASO x10^3 (test code 0.03 10*3/uL 0.01-0.07 = 704-7) Lab Interpretation Abnormal (test code = 77281-8) [facility]"
--- NOTE | 2023-04-17 01:02 | EDPHYS ---
Physician Documentation [facility] Name: Ayanna Ochoa Age: 27 yrs Sex: Female : 1995 Arrival Date: 04/16/2023 Time: 22:56 Bed 15 Private MD: ED Physician Jose Yeh HPI: 04/16 23:35 This 27 yrs old Female presents to ER via Ambulatory with complaints of Foot cp Pain, Knee Pain, Wrist Pain. 23:35 The patient presents with pain, that is acute. The complaints affect the left foot, cp left wrist. 23:35 Context: resulted from an unknown cause, the patient can fully bear weight, the patient cp is able to ambulate, with moderate difficulty. Onset: The symptoms/episode began/occurred 2 week(s) ago. 23:35 Associated signs and symptoms: Pertinent positives: radiating pain up lower leg to cp knee, Pertinent negatives calf tenderness, fever, swelling, warmth. Treatment prior to arrival includes: no previous treatment. Severity of symptoms: in the emergency department the symptoms are unchanged, despite home interventions. Historical: - Allergies: 23:10 No Known Allergies; ha1 - Immunization history:: Adult Immunizations unknown. - Social history:: Smoking status: unknown. ROS: 23:40 Constitutional: Negative for body aches, chills, fever, poor PO intake. cp 23:40 Eyes: Negative for injury, pain, redness, and discharge. cp 23:40 Neck: Negative for pain with movement, pain at rest, stiffness. 23:40 Cardiovascular: Negative for chest pain. 23:40 Respiratory: Negative for cough, shortness of breath, wheezing. 23:40 Abdomen/GI: Negative for abdominal pain, nausea, vomiting, and diarrhea. 23:40 Back: Negative for pain at rest, pain with movement. 23:40 MS/extremity: Positive for pain, swelling, tenderness, of the left foot and left wrist, Negative for decreased range of motion, deformity, paresthesias. 23:40 Skin: Negative for cellulitis, rash. 23:40 Neuro: Negative for altered mental status, dizziness, headache, weakness. 23:40 All other systems are negative. Exam: 23:45 Constitutional: The patient appears in no acute distress, alert, awake, non-toxic, well cp developed, well nourished, obese. 23:45 Head/Face: Normocephalic, atraumatic. cp 23:45 Eyes: Periorbital structures: appear normal, Conjunctiva: normal, no exudate, no injection, Sclera: no appreciated abnormality, Lids and lashes: appear normal, bilaterally. 23:45 ENT: External ear(s): are unremarkable, Nose: is normal, Mouth: Lips: moist, Oral mucosa: moist, Posterior pharynx: is normal, airway is patent. 23:45 Neck: ROM/movement: is normal, is supple, without pain, no range of motions limitations. 23:45 Chest/axilla: Inspection: normal. 23:45 Cardiovascular: Rate: normal. 23:45 Respiratory: the patient does not display signs of respiratory distress, Respirations: normal, no use of accessory muscles, no retractions, labored breathing, is not present. 23:45 Abdomen/GI: Exam negative for discomfort, distension, guarding, Inspection: abdomen appears normal. 23:45 Back: pain, is absent, ROM is normal. 23:45 Musculoskeletal/extremity: Extremities: grossly normal except: noted in the left wrist: tenderness, There is no evidence of decreased ROM, deformity, noted in the dorsum of left foot: pain, swelling, tenderness, tenderness noted base of left fifth metatarsal, Pulses: noted to be 2+ in the left radial artery and left dorsalis pedis artery. 23:45 Skin: cellulitis, is not appreciated, no rash present. Vital Signs: 23:06 BP 131 / 68; Pulse 81; Resp 20; Temp 97.4; Pulse Ox 100% ; Weight 151.05 kg; Height 5 kl ft. 5 in. ; Pain 8/10; 04/17 00:10 BP 117 / 89; Pulse 78; Resp 18 S; Pulse Ox 100% on R/A; ha1 01:13 BP 122 / 71; Pulse 75; Resp 18 S; Pulse Ox 100% on R/A; ha1 04/16 23:06 Body Mass Index 55.41 (151.05 kg, 165.1 cm) 04/16 23:06 Pain Scale: Adult kl MDM: 04/16 23:25 Patient medically screened. 04/17 01:00 Data reviewed: vital signs, nurses notes, radiologic studies, plain films. 01:00 Independent interpretation of the following test(s) in the Emergency Department X-Ray: cp My interpretation is images of left wrist negative for fracture and images of left foot negative for fracture. Counseling: I had a detailed discussion with the patient and/or guardian regarding: the historical points, exam findings, and any diagnostic results supporting the discharge/admit diagnosis, radiology results, the need for outpatient follow up, a family practitioner, to return to the emergency department if symptoms worsen or persist or if there are any questions or concerns that arise at home. 04/16 23:32 Order name: XRAY Foot LEFT 3 View cp 04/16 23:32 Order name: XRAY Wrist LEFT 3 view cp 04/17 00:40 Order name: Splint - Wrist; Complete Time: 01:10 cp 04/17 00:40 Order name: Domo Wrap; Complete Time: 01:09 cp Administered Medications: No medications were administered Disposition: 05:26 Co-signature as Attending Physician, Jose Yeh MD I agree with the assessment sp4 and plan of care. I reviewed the patient's care provided by the Advanced Practice Provider and agree with the diagnosis and treatment plan. Disposition Summary: 04/17/23 01:02 Discharge Ordered Location: Home cp Problem: new cp Symptoms: have improved cp Condition: Stable cp Diagnosis - Pain in left wrist cp - Pain in left foot cp Followup: cp - With: Private Physician - When: 1 week - Reason: Recheck today's complaints Discharge Instructions: - Discharge Summary Sheet cp - Wrist Pain, Adult cp - Foot Pain cp Forms: - Medication Reconciliation Form cp - Thank You Letter cp - Antibiotic Education cp - Prescription Opioid Use cp - [email or web address] cp - Work release form ha1 Prescriptions: - Ibuprofen 800 mg Oral Tablet - take 1 tablet by ORAL route every 8 hours As needed take with food; 30 tablet; cp Refills: 0, Product Selection Permitted Signatures: Dispatcher [employer] EDMS Salbador Caicedo PA PA cp Kathy Hainse RN RN ha1 Potepalov, Sergey, MD MD sp4 Corrections: (The following items were deleted from the chart) 01:10 00:40 Crutches ordered. cp ha1 21:35 04/16 23:35 The complaints affect the left foot, cp cp
--- NOTE | 2023-04-17 01:02 | ER ---
Nurse's Notes [facility] Name: Ayanna Ochoa Age: 27 yrs Sex: Female : 1995 Arrival Date: 04/16/2023 Time: 22:56 Bed 15 Private MD: Diagnosis: Pain in left wrist;Pain in left foot Presentation: 04/16 23:06 Chief complaint: Patient states: c/o pain to top of left foot radiating to left knee x kl 2 weeks. Also c/o left wrist pain. Coronavirus screen: Vaccine status: Patient reports being unvaccinated. Ebola Screen: Patient negative for fever greater than or equal to 101.5 degrees Fahrenheit, and additional compatible Ebola Virus Disease symptoms. Initial Sepsis Screen: Does the patient meet any 2 criteria? No. Patient's initial sepsis screen is negative. Risk Assessment: Do you want to hurt yourself or someone else? Patient reports no desire to harm self or others. Onset of symptoms was April 02, 2023. 23:06 Method Of Arrival: Ambulatory kl 23:06 Acuity: ANDREA 4 kl 23:20 Initial Sepsis Screen: Does the patient have a suspected source of infection? No. ha1 Patient's initial sepsis screen is negative. Triage Assessment: 23:10 General: Appears comfortable, Behavior is calm, cooperative. Pain: Complains of pain in ha1 left lateral ankle Pain does not radiate. Neuro: Level of Consciousness is awake, alert, obeys commands, Oriented to person, place, time, situation. Cardiovascular: Patient's skin is warm and dry. Respiratory: Airway is patent Respiratory effort is even, unlabored, Respiratory pattern is regular, symmetrical. GI: No signs and/or symptoms were reported involving the gastrointestinal system. Musculoskeletal: Circulation, motion, and sensation intact. Reports pain in left lateral ankle. Historical: - Allergies: 23:10 No Known Allergies; ha1 - Immunization history:: Adult Immunizations unknown. - Social history:: Smoking status: unknown. Screenin:10 [facility] ED Fall Risk Assessment (Adult) History of falling in the last 3 months, ha1 including since admission No falls in past 3 months (0 pts) Score/Fall Risk Level 3 or more points = High Risk Oriented to surroundings, Maintained a safe environment, Educated pt \T\ family on fall prevention, incl call for assistance when getting out of bed. Abuse screen: Denies threats or abuse. Denies injuries from another. Nutritional screening: No deficits noted. Tuberculosis screening: No symptoms or risk factors identified. Assessment: 23:10 Reassessment: see triage assessment. 1 04/17 00:15 Reassessment: Patient and/or family updated on plan of care and expected duration. Pain ha1 level reassessed. Patient is alert, oriented x 3, equal unlabored respirations, skin warm/dry/pink. 01:13 Reassessment: Patient and/or family updated on plan of care and expected duration. Pain ha1 level reassessed. Patient is alert, oriented x 3, equal unlabored respirations, skin warm/dry/pink. Patient states feeling better. Patient states symptoms have improved. Vital Signs: 04/16 23:06 BP 131 / 68; Pulse 81; Resp 20; Temp 97.4; Pulse Ox 100% ; Weight 151.05 kg; Height 5 kl ft. 5 in. ; Pain 8/10; 04/17 00:10 BP 117 / 89; Pulse 78; Resp 18 S; Pulse Ox 100% on R/A; ha1 01:13 BP 122 / 71; Pulse 75; Resp 18 S; Pulse Ox 100% on R/A; ha1 04/16 23:06 Body Mass Index 55.41 (151.05 kg, 165.1 cm) 04/16 23:06 Pain Scale: Adult kl ED Course: 04/16 22:59 Patient arrived in ED. ja2 23:10 Triage completed. 23:10 Arm band placed on right wrist. ha1 23:10 Patient has correct armband on for positive identification. Bed in low position. Call ha1 light in reach. Side rails up X 1. 23:22 Salbador Caicedo PA is PHCP. cp 23:22 Jose Yeh MD is Attending Physician. cp 23:22 Kathy Haines RN is Primary Nurse. ha1 04/17 00:10 XRAY Foot LEFT 3 View In Process Unspecified. EDMS 00:10 XRAY Wrist LEFT 3 view In Process Unspecified. EDMS 01:13 No provider procedures requiring assistance completed. Patient did not have IV access ha1 during this emergency room visit. Administered Medications: No medications were administered Medication: 01:15 VIS not applicable for this client. ha1 Outcome: 01:02 Discharge ordered by . mitra 01:15 Patient left the ED. ha1 01:15 Discharged to home ambulatory, with family. ha1 01:15 Condition: stable ha1 01:15 Discharge instructions given to patient, Instructed on discharge instructions, follow up and referral plans. medication usage, Demonstrated understanding of instructions, follow-up care, medications, Prescriptions given X 1. Signatures: Dispatcher [employer] EDIsabel Duvall RN RN Salbador Mendieta PA PA cp Alexander, Jessica ja2 Ayala, Heidy, RN RN ha1
[2023-04-17 01:19] VITALS: TEMP 97.4; O2SAT 100
[2023-04-17 01:21] VITALS: BP 122/71
--- NOTE | 2023-04-17 17:31 | RAD REPORT ---
EXAM DESCRIPTION: XR Left Wrist Complete, 3 or More Views CLINICAL HISTORY: The patient is 27 years old and is Female; PAIN TECHNIQUE: Frontal, lateral and oblique views of the left wrist. COMPARISON: No relevant prior studies available. FINDINGS: BONES/JOINTS: Unremarkable. No acute fracture. No dislocation. SOFT TISSUES: Mild soft tissue swelling of the dorsum of the wrist and hand is present. Findings may be secondary to patient body habitus. No radiopaque foreign body. IMPRESSION: Mild soft tissue swelling of the dorsum of the wrist and hand is present. Findings may b e secondary to patient body habitus. No underlying acute bony abnormality. Electronically signed by: Lyn Russell MD 04/17/2023 12:39 AM CDT Due to temporary technical issues with the PACS/Fluency reporting system, reports are being signed by the in house radiologists without review as a courtesy to insure prompt reporting. The interpreting radiologist is fully responsible for the content of the report.
--- NOTE | 2023-04-17 17:35 | RAD REPORT ---
EXAM DESCRIPTION: XR Left Foot Complete, 3 or More Views CLINICAL HISTORY: The patient is 27 years old and is Female; PAIN TECHNIQUE: Frontal, lateral and oblique views of the left foot. COMPARISON: No relevant prior studies available. FINDINGS: BONES/JOINTS: Unremarkable. No acute fracture. No dislocation. SOFT TISSUES: Unremarkable. No radiopaque foreign body. IMPRESSION: Normal left foot radiographs. Electronically signed by: Lyn Russell MD 04/17/2023 12:40 AM CDT Due to temporary technical issues with the PACS/Fluency reporting system, reports are being signed by the in house radiologists without review as a courtesy to insure prompt reporting. The interpreting radiologist is fully responsible for the content of the report.
== END 2023-04-17 01:15 | disposition home or self-care (01) ==
LOC: ER 22:56
DX: M25.532 Pain in left wrist (principal); M79.672 Pain in left foot
CPT/HCPCS: 99283

== ENCOUNTER → 2023-10-16 | Emergency (ER) | payer SELFPAY ==
--- OUTSIDE RECORDS SUMMARY | 2023-10-16 22:31 | XMS REPORT | Continuity of Care Document ---
Author Name Unknown Address [address] [facility] [place] [address] [facility] Address [address] [facility] [place] [address] Care Team Providers Care Sound Engineer Audio Control Name Role Phone Morrical Giuliano PANCHAL Attending Clinician Payers Payer Name Policy Type Policy Number Effective Date Expirati on Date Source Problems Condition Name Condition Details Condition Category Status Onset Date Resolution Date Last Treatment Date Treating Clinician Comments Source Well woman exam Well woman exam Disease Active 2016-10 00:00: 00 [facility] Morbid obesity Morbid obesity Disease Active 2016-10 00:00: 00 [facility] Anemia of mother in , condition Anemia of mother in , condition Disease Active 2016-10 00:00: 00 [facility] Rubella non-immune status, antepartum Rubella non-immune status, antepartum Disease Active 02-17 00:00: 00 Overview: Address in General acute hospital Allergies, Adverse Reactions, Alerts Allergy Name Allergy Type Status Severity Reaction(s) Onset Date Inactive Date Treating Clinician Comments Source NO KNOWN ALLERGIE S Drug Class Active [facility] Social History Social Habit Start Date Stop Date Quantity Comments Source Sex Assigned At [facility] Exposure to SARS-CoV-2 (event) Not sure General acute hospital Cigarettes smoked current (pack per day) - Reported 2017-10-09 00:00:00 2017-10-09 00:00:00 [facility] Tobacco use and exposure 2017-10-09 00:00:00 2017-10-09 00:00:00 Never used [facility] Alcohol intake 2017-10-09 00:00:00 2017-10-09 00:00:00 Current non-drinker of alcohol (finding) [facility] History of tobacco use 2013-09-08 00:00:00 Cigarette Smoker [facility] Smoking Status Start Date Stop Date Source Former smoker 2017-10-09 00:00:00 2017-10-09 00:00:00 [facility] Medications Ordered Medication Name Filled Medication Name Start Date Stop Date Current Medication? Ordering Clinician Indication Dosage Frequency Signature (SIG) Comments Components Source norethindro ne 0.35 mg tablet 2016-10 00:00: 00 Yes [id number] 1{tbl} Take 1 tablet by mouth daily. [facility] Vital Signs Vital Name Observation Time Observation Value Comments S ource Systolic blood pressure 2020-11-29 08:59:00 120 mm[Hg] [facility] Diastolic blood pressure 2020-11-29 08:59:00 70 mm[Hg] [facility] Heart rate 2020-11-29 08:59:00 82 /min [facility] Respiratory rate 2020-11-29 08:59:00 19 /min [facility] Oxygen saturation in Arterial blood by Pulse oximetry 2020-11-29 08:59:00 99 /min [facility] Body temperature 2020-11-29 05:48:00 36.78 Ruthie [facility] Body weight 2020-11-29 05:48:00 145.1 kg [facility] BMI 2020-11-29 05:48:00 54.91 kg/m2 [facility] Procedures Procedure Date / Time Performed Performing Clinicia n Source URINALYSIS 2020-11-29 08:54:00 [facility] 2020-11-29 06:19:00 Leoncio Hall [facility] BASIC METABOLIC PANEL (NA, K, CL, CO2, GLUCOSE, BUN, CREATININE, CA) 2020-11-29 06:19:00 [facility] CBC WITH DIFF 2020-11-29 06:19:00 Cynthia stanton Harvey [facility] Encounters Start Date/Time End Date/Time Encounter Type Admission Type Attending Clinicians Care Facility Care Department Encounter ID Source 2021-08-18 22:41:10 Emergency [facility] [id number] [facility] 2020-11-28 23:56:00 2020-11-29 03:41:00 Emergency Morrical, Giuliano [facility] [id number] [facility] Results Test Description Test Time Test Comments Results Result Co mments Source [facility] [id number] 07:04:00* Test Item Value Reference Range Interpretation Comme nts PREG SERUM (test code = 8747069827) Negative CARROLL (test code = CARROLL) Less than 10 IU/L. ?If low titer or ectopic is suspected, resubmit specimen in 48-72 hours. [facility] (NA, K, CL, CO2, GLUCOSE, BUN, CREATININE, CA)2020-11-29 06:52:00* Test Item Value Reference Range Interpretation Comme nts NA (test code = 5763891681) 140 mmol/L 135-145 K (test code = 2728410668) 3.9 mmol/L 3.5-5 CL (test code = 2228761898) 104 mmol/L 98-108 CO2 TOTAL (test code = 4849557643) 29 mmol/L 23-31 AGAP (test code = 0434164243) 2-16 BUN (test code = 5224981178) 7 mg/dL 7-23 GLUCOSE (test code = 1591477320) 104 mg/dL 70-110 CREATININE (test code = 8745825178) 0.60 mg/dL 0.5-1.04 CALCIUM (test code = 3008156247) 9.2 mg/dL 8.6-10.6 eGFR Calculation (Non-) (test code = 2975982662) mL/min/1.73m2 eGFR Calculation () (test code = 7692838194) mL/min/1.73m2 CARROLL (test code = CARROLL) Association of [...] or urine or abnormalities in imaging tests). [facility] with [id number] 06:46:00* Test Item Value Reference Range Interpretation Comme nts WBC (test code = 6690-2) See_Comment [[employer]] The system which generated this result transmitted reference range: 4.30 - 11.10 10*3/?L. The reference range was not used to interpret this result as normal/abnormal. RBC (test code = 789-8) See_Comment [[employer]] The system which generated this result transmitted reference range: 3.93 - 5.25 10*6/?L. The reference range was not used to interpret this result as normal/abnormal. HGB (test code = 718-7) 13.0 g/dL 11.6-15 HCT (test code = 4544-3) 39.5 % 35.7-45.2 MCV (test code = 787-2) 95.6 fL 80.6-95.5 H MCH (test code = 785-6) 31.5 pg 25.9-32.8 MCHC (test code = 786-4) 32.9 g/dL 31.6-35.1 RDW-SD (test code = 72965-2) 45.0 fL 39-49.9 RDW-CV (test code = 788-0) 12.7 % 12-15.5 PLT (test code = 777-3) See_Comment [Automated [employer]] The system which generated this result transmitted reference range: 166 - 358 10*3/?L. The reference range was not used to interpret this result as normal/abnormal. MPV (test code = 82221-6) 10.6 fL 9.5-12.9 NRBC/100 WBC (test code = 7076833500) See_Comment [Automated [employer] ssage] The system which generated this result transmitted reference range: 0.0 - 10.0 /100 WBCs. The reference range was not used to interpret this result as normal/abnormal. NRBC x10^3 (test code = 2728930740) <0.01 See_Comment [Automated [employer]] The system which generated this result transmitted reference range: 10*3/?L. The reference range was not used to interpret this result as normal/abnormal. GRAN MAT (NEUT) % (test code = 770-8) 59.1 % IMM GRAN % (test code = 8484863854) 0.30 % LYMPH % (test code = 736-9) 33.0 % MONO % (test code = 5905-5) 6.2 % EOS % (test code = 713-8) 1.1 % BASO % (test code = 706-2) 0.3 % GRAN MAT x10^3(ANC) (test code = 1332604634) 5.16 10*3/uL 1.88-7.09 IMM GRAN x10^3 (test code = 0528173067) 0.03 10*3/uL 0-0.06 LYMPH x10^3 (test code = 731-0) 2.89 10*3/uL 1.32-3.29 MONO x10^3 (test code = 742-7) 0.54 10*3/uL 0.33-0.92 EOS x10^3 (test code = 711-2) 0.10 10*3/uL 0.03-0.39 BASO x10^3 (test code = 704-7) 0.03 10*3/uL 0.01-0.07 Lab Interpretation (test code = 56191-4) Abnormal [facility]"
[2023-10-16 23:33] LABS: SARS-CoV-2 Antigen Rapid Res Negative (Negative)
--- NOTE | 2023-10-17 00:23 | ER ---
Nurse's Notes [facility] Name: Ayanna Ochoa Age: 27 yrs Sex: Female : 1995 Arrival Date: 10/16/2023 Time: 22:28 Bed DX1 Private MD: Diagnosis: Acute upper respiratory infection, unspecified Presentation: 10/16 22:56 Chief complaint: Patient states: Cough, sore throat onset 10/13. Pt also reports that cm10 she has been on her period for 1 year and thinks that is why she may be feeling weak. Coronavirus screen: Vaccine status: Patient reports being unvaccinated. Ebola Screen: Patient denies travel to an Ebola-affected area in the 21 days before illness onset. No symptoms or risks identified at this time. Initial Sepsis Screen: Does the patient meet any 2 criteria? No. Patient's initial sepsis screen is negative. Does the patient have a suspected source of infection? No. Patient's initial sepsis screen is negative. Risk Assessment: Do you want to hurt yourself or someone else? Patient reports no desire to harm self or others. Onset of symptoms was October 16, 2023. 22:56 Method Of Arrival: Ambulatory cm10 22:56 Acuity: ANDREA 3 cm10 Historical: - Allergies: 22:58 No Known Allergies; cm10 - Home Meds: 22:58 None [Active]; cm10 - PMHx: 22:58 Headaches; cm10 - PSHx: 22:58 section; cm10 - Immunization history:: Adult Immunizations unknown. - Social history:: Smoking status: Patient denies any tobacco usage or history of. Screenin/29 00:28 [facility] ED Fall Risk Assessment (Adult) History of falling in the last 3 months, jb4 including since admission No falls in past 3 months (0 pts) Confusion or Disorientation No (0 pts). Abuse screen: Denies threats or abuse. Nutritional screening: No deficits noted. Tuberculosis screening: No symptoms or risk factors identified. Assessment: 10/16 23:00 General: Appears in no apparent distress. uncomfortable, Behavior is calm, cooperative, jb4 appropriate for age. Pain: Complains of pain in throat Pain does not radiate. Pain currently is 5 out of 10 on a pain scale. Neuro: Level of Consciousness is awake, alert, obeys commands, Oriented to person, place, time, situation. Cardiovascular: Patient's skin is warm and dry. Respiratory: Reports. GI: : No signs and/or symptoms were reported regarding the genitourinary system. EENT: Throat is clear has enlarged tonsils bilaterally with gag reflex present. Derm: Skin is intact, Skin is pink, warm \T\ dry. Musculoskeletal: Circulation, motion, and sensation intact. Range of motion: intact in all extremities. 10/17 00:28 Reassessment: Patient appears in no apparent distress at this time. Patient and/or jb4 family updated on plan of care and expected duration. Pain level reassessed. Patient is alert, oriented x 3, equal unlabored respirations, skin warm/dry/pink. Vital Signs: 10/16 22:56 BP 133 / 76; Pulse 92; Resp 18; Temp 99.1; Pulse Ox 100% on R/A; Weight 149.69 kg; cm10 Height 5 ft. 5 in. ; Pain 8/10; 22:56 Body Mass Index 54.91 (149.69 kg, 165.1 cm) cm10 22:56 Pain Scale: Adult cm10 ED Course: 22:30 Patient arrived in ED. gm2 22:34 Delma Gonzáles PA-C is PHCP. sb4 22:34 Salbador Bruno MD is Attending Physician. sb4 22:58 Triage completed. cm10 22:58 Arm band placed on Patient placed. cm10 23:19 Strep Sent. jb4 23:19 Flu Sent. jb4 23:19 SARS RAPID Sent. jb4 23:28 Chest Pa And Lat (2 Views) XRAY In Process Unspecified. EDMS 10/17 00:28 Patient has correct armband on for positive identification. Bed in low position. Call jb4 light in reach. Side rails up X 1. 00:28 No provider procedures requiring assistance completed. Patient did not have IV access jb4 during this emergency room visit. Administered Medications: No medications were administered Medication: 00:28 VIS not applicable for this client. jb4 Outcome: 00:22 Discharge ordered by . sb4 00:28 Discharged to home ambulatory, jb4 00:28 Condition: stable 00:28 Discharge instructions given to patient, Instructed on discharge instructions, follow up and referral plans. medication usage, Demonstrated understanding of instructions, follow-up care, medications, Prescriptions given X 2, 00:29 Patient left the ED. jb4 Signatures: Dispatcher [employer] EDMS Dimitrios Patel RN RN jb4 Delma Gonzáles PA-C PA-C sb4 Mary White RN RN cm10 Svetlana Worley 2
--- NOTE | 2023-10-17 00:23 | EDPHYS ---
Physician Documentation [facility] Name: Ayanna Ochoa Age: 27 yrs Sex: Female : 1995 Arrival Date: 10/16/2023 Time: 22:28 Bed DX1 Private MD: ED Physician Salbador Bruno HPI: 10/17 00:02 This 27 yrs old Female presents to ER via Ambulatory with complaints of Sore sb4 Throat, cough. 00:03 The patient or guardian reports cough. Onset: The symptoms/episode began/occurred sb4 today. Modifying factors: The symptoms are alleviated by nothing. the symptoms are aggravated by activity. Associated signs and symptoms: Pertinent positives: chest pain, sore throat, Pertinent negatives: diarrhea, fever, vomiting. Severity of symptoms: At their worst the symptoms were mild. The patient has not experienced similar symptoms in the past. The patient has not recently seen a physician. Historical: - Allergies: 10/16 22:58 No Known Allergies; cm10 - Home Meds: 22:58 None [Active]; cm10 - PMHx: 22:58 Headaches; cm10 - PSHx: 22:58 section; cm10 - Immunization history:: Adult Immunizations unknown. - Social history:: Smoking status: Patient denies any tobacco usage or history of. ROS: 10/17 00:03 Constitutional: Negative for fever, chills, and weight loss, sb4 ENT: Positive for sore throat, Respiratory: Positive for cough, dyspnea on exertion, Abdomen/GI: Positive for nausea, All other systems are negative, Exam: 00:03 Constitutional: This is a well developed, well nourished patient who is awake, alert, sb4 and in no acute distress. Head/Face: Normocephalic, atraumatic. Eyes: Extra-ocular motions intact. Periorbital areas with no swelling, redness, or edema. ENT: Mucous membranes moist. Cardiovascular: Regular rate and rhythm with a normal S1 and S2. Respiratory: Lungs have equal breath sounds bilaterally, clear to auscultation and percussion. No rales, rhonchi or wheezes noted. No increased work of breathing, no retractions or nasal flaring. Abdomen/GI: Soft, non-tender, no distension. Back: No spinal tenderness. No costovertebral tenderness. Full range of motion. Skin: Warm, dry with normal turgor. Normal color with no rashes, no lesions, and no evidence of cellulitis. MS/ Extremity: Pulses equal, no cyanosis. Neurovascular intact. Full, normal range of motion. Neuro: Awake and alert, GCS 15, oriented to person, place, time, and situation. Motor strength 5/5 in all extremities. Sensory grossly intact. Vital Signs: 10/16 22:56 BP 133 / 76; Pulse 92; Resp 18; Temp 99.1; Pulse Ox 100% on R/A; Weight 149.69 kg; cm10 Height 5 ft. 5 in. ; Pain 8/10; 22:56 Body Mass Index 54.91 (149.69 kg, 165.1 cm) cm10 22:56 Pain Scale: Adult cm10 MDM: 22:52 Patient medically screened. sb4 10/17 00:03 Differential diagnosis: bronchitis, flu, URI, PNA, strep, covid. sb4 00:21 Antibiotic administration: Not indicated, the patient has a suspected viral illness. sb4 Data interpreted: Pulse oximetry: on room air is 100 %. Data reviewed: vital signs, nurses notes, lab test result(s), radiologic studies, and as a result, I will discharge patient. Counseling: I had a detailed discussion with the patient and/or guardian regarding the historical points, exam findings, and any diagnostic results supporting the discharge/admit diagnosis, lab results, radiology results, to return to the emergency department if symptoms worsen or persist or if there are any questions or concerns that arise at home. 10/16 23:04 Order name: SARS RAPID; Complete Time: 23:37 sb4 10/16 23:04 Order name: Flu; Complete Time: 00:29 sb4 10/16 23:04 Order name: Strep; Complete Time: 23:37 sb4 10/16 23:37 Order name: Throat Culture EDMS 10/16 23:04 Order name: Chest Pa And Lat (2 Views) XRAY sb4 Administered Medications: No medications were administered Disposition Summary: 10/17/23 00:22 Discharge Ordered Notes: Location: Home sb4 Problem: new sb4 Symptoms: are unchanged sb4 Condition: Stable sb4 Diagnosis - Acute upper respiratory infection, unspecified sb4 Followup: sb4 - With: Emergency Department - When: As needed - Reason: Trouble breathing, Worsening of condition Discharge Instructions: - Discharge Summary Sheet sb4 - Upper Respiratory Infection, Adult, [id number] sb4 Forms: - Medication Reconciliation Form sb4 - Thank You Letter sb4 - Antibiotic Education sb4 - Prescription Opioid Use sb4 - Patient Portal Instructions sb4 - Leadership Thank You Letter sb4 Prescriptions: - Tessalon Perles 100 mg Oral Capsule - take 1 capsule ORAL route every 8 hours As needed; 15 capsule; Refills: 0, sb4 Product Selection Permitted - Medrol (Bradley) 4 mg Oral Tablets, Dose Pack - take 1 tablet ORAL route as directed - follow package instructions; 1 packet; sb4 Refills: 0, Product Selection Permitted Signatures: Dispatcher [employer] Delma Tee PA-C PA-C sb4 Mary White, RN RN cm10
[2023-10-17 06:51] VITALS: BP 133/76; TEMP 99.1; O2SAT 100
--- NOTE | 2023-10-17 19:10 | RAD REPORT ---
EXAM DESCRIPTION: XR Chest, 2 Views CLINICAL HISTORY: The patient is 27 years old and is Female; Chest pain;Cough Bed Name: DX1 TECHNIQUE: Frontal and lateral views of the chest. COMPARISON: No relevant prior studies available. FINDINGS: LUNGS: Lungs are clear bilaterally. No consolidation. PLEURAL SPACE: No appreciable pleural effusion or pneumothorax. HEART: Unremarkable No cardiomegaly. MEDIASTINUM: Unremarkable Normal mediastinal contour. BONES/JOINTS: No acute osseous abnormality. UPPER ABDOMEN: Right hemidiaphragm elevation. IMPRESSION: No acute findings in the chest. 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 The interpreting radiologist is fully responsible for the content of the report.
== END ==
LOC: ER 22:28
DX: J06.9 Acute upper respiratory infection, unspecified (principal); Z11.52 Encounter for screening for COVID-19
CPT/HCPCS: 36415; 71046; 87070; 87081; 87804; 87811; 99283

== ENCOUNTER 2024-12-13 09:12 | Emergency (ER) | payer SELFPAY ==
[2024-12-13] MEDS ORDERED: IPRATROPIUM BROM 0.5MG/2.5ML ONE (09:35)
[2024-12-13] MEDS ORDERED: ACETAMINOPHEN 500 MG TAB ONE (09:35)
[2024-12-13] MEDS ORDERED: ALBUTEROL 2.5 MG/3 ML NEB SOL ONE (09:35)
[2024-12-13] MEDS ORDERED: ONDANSETRON 4 MG (ODT) TAB ONE (09:36)
[2024-12-13] MEDS ORDERED: BENZONATATE 100 MG CAP PO ONE (09:36)
[2024-12-13] MEDS ORDERED: IBUPROFEN 400 MG TAB ONE (09:36)
[2024-12-13 10:09] LABS: Influenza A Ag Positive; Influenza B Ag Negative; SARS-CoV-2 Antigen Rapid Res Negative (Negative)
--- NOTE | 2024-12-13 10:21 | ER ---
Nurse's Notes [facility] Name: Ayanna Ochoa Age: 29 yrs Sex: Female : 1995 Arrival Date: 12/13/2024 Time: 09:12 Bed 19 Private MD: Diagnosis: Viral infection, unspecified;Influenza due to identified novel influenza A virus Presentation: 12/13 09:24 Chief complaint: Patient states: "My throat hurts and it's swollen and giving me a hard aa5 time breathing, last night I had 2 panic attacks". Pt also reports cough, congestion, and chills. Coronavirus screen: congestion, cough unrelated to allergies. Ebola Screen: Patient denies travel to an Ebola-affected area in the 21 days before illness onset. Initial Sepsis Screen: Does the patient meet any 2 criteria? RR > 20 per min. HR > 90 bpm. Yes Does the patient have a suspected source of infection? No. Patient's initial sepsis screen is negative. Risk Assessment: Do you want to hurt yourself or someone else? Patient reports no desire to harm self or others. Onset of symptoms was November 2024. 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 - Infectious Disease History:: Denies. - Social history:: Smoking status: Patient reports the use of cigarette tobacco products, Reported history of juuling and/or vaping. Screenin:20 [facility] ED Fall Risk Assessment (Adult) History of falling in the last 3 months, kc6 including since admission No falls in past 3 months (0 pts) Confusion or Disorientation No (0 pts) Intoxicated or Sedated No (0 pts) Impaired Gait No (0 pts) Mobility Assist Device Used No (0 pt) Altered Elimination No (0 pt) Score/Fall Risk Level 0 - 2 = Low Risk Oriented to surroundings, Maintained a safe environment, Educated pt \\T\\ family on fall prevention, incl call for assistance when getting out of bed. Abuse screen: Denies threats or abuse. Denies injuries from another. Nutritional screening: No deficits noted. Tuberculosis screening: No symptoms or risk factors identified. Assessment: 10:21 General: Appears in no apparent distress. uncomfortable, obese, well groomed, well kc6 developed, Behavior is calm, cooperative, appropriate for age, Reports chills for 12-24 hours, fever for 12-24 hours, feeling ill for 12-24 hours, fatigue for 12-24 hours. Neuro: Level of Consciousness is awake, alert, obeys commands, Oriented to person, place, time, situation, Appropriate for age. Cardiovascular: Capillary refill < 3 seconds. Respiratory: Reports shortness of breath at rest on exertion cough that is dry, pain with cough pain with respiration Airway is patent Trachea midline Respiratory effort is even, unlabored, Respiratory pattern is regular, symmetrical. GI: Reports nausea, vomiting, Patient currently denies abdominal pain, diarrhea. : No signs and/or symptoms were reported regarding the genitourinary system. EENT: Reports nasal congestion pain when swallowing. Derm: No signs and/or symptoms reported regarding the dermatologic system. Skin is intact, is healthy with good turgor, Skin is pink, warm \\T\\ dry. Musculoskeletal: No signs and/or symptoms reported regarding the musculoskeletal system. Circulation, motion, and sensation intact. Range of motion: intact in all extremities. Vital Signs: 09:24 BP 121 / 58; Pulse 110; Resp 25 S; Temp 102.2(O); Pulse Ox 95% on R/A; Weight 145.15 kg aa5 (R); Height 5 ft. 5 in. (R); 10:20 Pulse 98; Pulse Ox 95% ; ec2 10:24 BP 113 / 60; Pulse 98; Resp 18 S; Temp 100(O); Pulse Ox 92% on R/A; kc6 09:24 Body Mass Index 53.25 (145.15 kg, 165.1 cm) aa5 ED Course: 09:14 Patient arrived in ED. al6 09:15 Rasta Wagner MD is Attending Physician. ec2 09:24 Venecia Shelley, MERI is Primary Nurse. kc6 09:24 Arm band placed on Patient placed in an exam room, on a stretcher. aa5 09:26 Triage completed. aa5 10:20 Patient has correct armband on for positive identification. Bed in low position. Call kc6 light in reach. Side rails up X2. Pulse ox on. NIBP on. Door closed. Noise minimized. Lights dimmed. Warm blanket given. Pillow given. 10:37 No provider procedures requiring assistance completed. Patient did not have IV access kc6 during this emergency room visit. Administered Medications: 09:45 Drug: Acetaminophen PO 1000 mg PO once Route: PO; kc6 10:25 Follow up: Response: No adverse reaction; Temperature is decreased kc6 09:45 Drug: Ibuprofen PO 800 mg PO once Route: PO; kc6 10:25 Follow up: Response: No adverse reaction; Temperature is decreased kc6 09:45 Drug: Tessalon Perle PO 200 mg PO once Route: PO; kc6 10:25 Follow up: Response: No adverse reaction kc6 09:45 Drug: Ondansetron Oral Disintegrating Tablet Oral Disintegrating Tablet 4 mg PO once kc6 Route: PO; 10:24 Follow up: Response: No adverse reaction; Nausea is decreased; Vomiting decreased kc6 09:45 Drug: DuoNeb Nebulize (3:1) (2.5 mg - 0.5 mg) 3 ml Nebulizer once Route: Nebulizer; kc6 10:24 Follow up: Response: No adverse reaction kc6 Medication: 10:37 VIS not applicable for this client. kc6 Outcome: 10:21 Discharge ordered by . ec2 10:37 Discharged to home ambulatory, kc6 10:37 Condition: good 10:37 Discharge instructions given to patient, Instructed on discharge instructions, follow up and referral plans. medication usage, Demonstrated understanding of instructions, follow-up care, medications, Prescriptions given X 3, 10:37 Patient left the ED. kc6 Signatures: Monalisa Cardona RN RN aa5 Venecia Shelley RN RN kc6 Rasta Wagner MD MD ec2 Veronica Dawn
--- NOTE | 2024-12-13 10:21 | EDPHYS ---
Physician Documentation [facility] Name: Ayanna Ochoa Age: 29 yrs Sex: Female : 1995 Arrival Date: 12/13/2024 Time: 09:12 Bed 19 Private MD: ED Physician Rasta Wagner HPI: 12/13 09:28 This 29 yrs old Female presents to ER via Ambulatory with complaints of Cough, ec2 Sore Throat. 09:28 Patient arrives today for upper respiratory symptoms. Patient been having cough and ec2 congestion, subjective fevers, sore throat, myalgias and just general malaise. Has taken Robitussin for symptoms.. 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 - Infectious Disease History:: Denies. - Social history:: Smoking status: Patient reports the use of cigarette tobacco products, Reported history of juuling and/or vaping. ROS: 09:28 Constitutional: as per hpi ec2 Exam: 09:28 Constitutional: GEN: NAD Head: atraumatic Eyes: EOMI Ears: External ears are normal. ec2 Mouth: No posterior pharyngeal erythema or exudates appreciated. CV: Tachycardia LUNGS: no respiratory distress, no wheezes or rales or rhonchi ABD: non-distended, soft, nontender, guarding, not rigid SKIN: no evidence of rashes MSK: no evidence of trauma Vital Signs: 09:24 BP 121 / 58; Pulse 110; Resp 25 S; Temp 102.2(O); Pulse Ox 95% on R/A; Weight 145.15 kg aa5 (R); Height 5 ft. 5 in. (R); 10:20 Pulse 98; Pulse Ox 95% ; ec2 10:24 BP 113 / 60; Pulse 98; Resp 18 S; Temp 100(O); Pulse Ox 92% on R/A; kc6 09:24 Body Mass Index 53.25 (145.15 kg, 165.1 cm) aa5 MDM: 09:23 Medical Screening Exam initiated ec2 09:29 Data reviewed: vital signs, nurses notes. ED course: Patient arrives today for upper ec2 respiratory symptoms. Examination is revealing for slightly tachycardic and febrile individual was otherwise in no acute respiratory distress. Will obtain viral swabs and treat the patient's symptoms. Suspect viral infection. Doubt pneumonia given lack of focal lung sounds. . 10:20 ED course: Patient is flu positive, on reassessment patient is well-appearing no acute ec2 distress. Will discharge home. Return precautions given.. 12/13 09:28 Order name: SARS RAPID ec2 12/13 09:51 Order name: COVID-19 Ag + Flu A+B Ag; Complete Time: 10:16 EDMS Administered Medications: 09:45 Drug: Acetaminophen PO 1000 mg PO once Route: PO; kc6 10:25 Follow up: Response: No adverse reaction; Temperature is decreased kc6 09:45 Drug: Ibuprofen PO 800 mg PO once Route: PO; kc6 10:25 Follow up: Response: No adverse reaction; Temperature is decreased kc6 09:45 Drug: Tessalon Perle PO 200 mg PO once Route: PO; kc6 10:25 Follow up: Response: No adverse reaction kc6 09:45 Drug: Ondansetron Oral Disintegrating Tablet Oral Disintegrating Tablet 4 mg PO once kc6 Route: PO; 10:24 Follow up: Response: No adverse reaction; Nausea is decreased; Vomiting decreased kc6 09:45 Drug: DuoNeb Nebulize (3:1) (2.5 mg - 0.5 mg) 3 ml Nebulizer once Route: Nebulizer; kc6 10:24 Follow up: Response: No adverse reaction kc6 Disposition Summary: 12/13/24 10:21 Discharge Ordered Notes: Location: Home ec2 Condition: Stable ec2 Diagnosis - Viral infection, unspecified ec2 - Influenza due to identified novel influenza A virus ec2 Followup: ec2 - With: Private Physician - When: - Reason: Re-evaluation by your physician Discharge Instructions: - Discharge Summary Sheet ec2 - Viral Illness, Adult ec2 Forms: - Work release form ec2 - Medication Reconciliation Form ec2 - Antibiotic Education ec2 - Prescription Opioid Use ec2 - Patient Portal Instructions ec2 - Leadership Thank You Letter ec2 Prescriptions: - albuterol sulfate 90 mcg/actuation Inhalation HFA Aerosol Inhaler - inhale 2 puff INHALATION route every 4 hours as needed for shortness of breath ec2 or wheezing; 1 unit; Refills: 0, Product Selection Permitted - Tessalon Perles 100 mg Oral Capsule - take 1 capsule ORAL route every 8 hours As needed; 15 capsule; Refills: 0, ec2 Product Selection Permitted - Tamiflu 75 mg Oral capsule - take 1 tablet ORAL route every 12 hours for 5 days; 10 tablet; Refills: 0, ec2 Product Selection Permitted Signatures: Dispatcher [employer] Monalisa Schmidt, RN RN aa5 Venecia Shelley RN RN kc6 Rasta Wagner MD MD ec2 Corrections: (The following items were deleted from the chart) 09:51 09:29 Influenza Screen (A \T\ B)+[id number] ordered. PAT STEWART
[2024-12-13 10:44] VITALS: BP 113/60; TEMP 100; O2SAT 92
== END 2024-12-13 10:37 | disposition home or self-care (01) ==
LOC: ER 09:12
DX: J10.1 Influenza due to other identified influenza virus with other respiratory manifestations (principal); Z11.52 Encounter for screening for COVID-19; Z72.0 Tobacco use
CPT/HCPCS: 36415; 87428; 99284; J7613; J7644; Q0162